=== PATIENT | male | born 1970 | race Caucasian/White ===

== ENCOUNTER 2021-07-04 10:06 | Observation (INO) ==
--- NOTE | 2021-06-30 10:56 | Anesthesiology Consultation ---
Date of Service June 30, 2021 Assessment & Plan (1) Encounter for pre-operative examination: - Hypokalemia: Low potassium at 3.0 on preop labs. Will forward labs to PCP and see if any rechecking and/or supplementation being done prior to surgery. Await ing PCP response. - COVID screening: Per assessment on 06/30: Travel screen negative, no known COVID-19 positive contacts or current COVID-19 related symptoms. Patient vaccinated. Surgeon arranging preop COVID testing (scheduled 06/30; CHAPINCITO Saucedo). Awaiting results. - Cardiology office visit (11/25/20): "Nonischemic CMP, LVEF 40-45%.. Normal coronary arteries via cath 09/02/2019[subsequent echo with improved LVEF at 50- 54% 06/2020].. Mildmoderate pulmonary hypertension.. Syncopal episode secondary to cough syncope.. Severe JOAN on CPAP. Pulmonary HTN.. Continue lisinopril.. metoprolol.. furosemide.. potassium."F/U one year recommended. Chart Review Chart Review: Patient NOT seen in Pre Admission Testing History Surgery Operation Date: 07/04/21 14:20 Proposed Procedures p Right Total Knee Arthroplasty - Farzad Polanco MD Height/Weight Height: 6 ft 2 in Weight: 148.778 kg Allergies Allergy/AdvReac Type Severity Reaction Status Date / Time No Known Drug Allergies Allergy Unknown . Verified 06/30/21 10:08 Medications Home Medications Medication Instructions Recorded Confirmed Last Taken adalimumab 40 mg/0.8 mL 40 mg SUBCUT Q14D #2 ml 02/10/20 06/30/21 Unknown subcutaneous syringe kit (Humira) colchicine 0.6 mg tablet 0.6 mg PO .COMPLEX PRN #90 tab 02/10/20 06/30/21 Unknown metoprolol succinate 100 mg 100 mg PO BID #60 tab 02/10/20 06/30/21 Unknown tablet,extended release 24 hr duloxetine 60 mg capsule,delayed 60 mg PO QAM 01/07/21 06/30/21 Unknown release sprinkle allopurinol 300 mg tablet 300 mg PO QAM 04/20/21 06/30/21 Unknown atorvastatin 10 mg tablet (Lipitor) 10 mg PO QAM 04/20/21 06/30/21 Unknown potassium chloride 10 mEq 30 meq PO BID 04/20/21 06/30/21 Unknown capsule,extended release cholecalciferol (vitamin D3) 25 25 mcg PO DAILY 06/30/21 06/30/21 Unknown mcg (1,000 unit) chewable tablet (Vitamin D3) furosemide 40 mg tablet (Lasix) 40 mg PO QAM 06/30/21 06/30/21 Unknown lisinopril 2.5 mg tablet 2.5 mg PO BID 06/30/21 06/30/21 Unknown magnesium 250 mg tablet 250 mg PO DAILY 06/30/21 06/30/21 Unknown milk thistle 500 mg capsule 500 mg PO QAM 06/30/21 06/30/21 Unknown zinc 100 mg tablet 100 mg PO DAILY 06/30/21 06/30/21 Unknown Past Medical History Medical History Chronic systolic CHF (congestive heart failure) follows with [facility] cardio Hx of gout Hyperlipidemia Hypertension Morbid obesity Psoriasis Pulmonary hypertension Pulmonary HTN mild to moderate (mPAP 40) with elevated left sided pressures (PCWP 28) per 08/2019 cardiac cath Rheumatoid arthritis Diffuse joints, on Humira (no cervical ROM limitations) Sleep apnea CPAP (compliant) Past Family History Family History Mother Family history of diabetes mellitus Other No family history of adverse response to anesthesia Past Surgical History Surgical History H/O elbow surgery R/L History of appendectomy History of cardiac cath 08/2019 > The coronary arteries are angiographically normal. LV diastolic pressure very high. Pulmonary HTN mild to moderate (mPAP 40) with elevated left sided pressures (PCWP 28). History of carpal tunnel release R/L History of colonoscopy History of tooth extraction Social History Smoking Status: Current every day smoker tobacco type: cigarettes Smoking cigarettes per day: 1/2 ppd Do You Dip or Chew Tobacco: No Hx Alcohol Use: Yes Alcohol type: beer alcohol intake frequency: 3 or more drinks per day Hx Substance Use: No substance use type: does not use Lab Results Anesthesia Preop Results Results Anesthesia Widget: WBC 8.31 K/uL (4.8-10.8) 06/08/21 Hgb 14.9 g/dL (14.0-18.0) 06/08/21 Hct 42.3 % (42-52) 06/08/21 Plt 134 K/uL (130-400) 06/08/21 Na 134 mmol/L (136-145) L 06/08/21 K 3.0 mmol/L (3.5-5.1) L 06/08/21 Cl 99 mmol/L (98-107) 06/08/21 CO2 23 mmol/L (21-32) 06/08/21 BUN 11 mg/dl (6-23) 06/08/21 Creat 0.74 mg/dl (0.6-1.4) 06/08/21 Glucose Level 113 mg/dl (70-99(Fasting)) H 06/08/21 PT 10.4 Seconds (9.0-12.0) 06/08/21 INR 1.0 (0.9-1.1) 06/08/21 Blood Type A Positive 06/08/21 Antibody Screen NEGATIVE 06/08/21 Testing Electrocardiogram Date: 01/07/21 NSR at 82bpm. NS TWA. Chest X-Ray Date: 01/07/21 Findings: + NAD Echocardiogram Date: 06/30/20 LVEF 50-54%. No clear cut RWMA. Grade I-II DD. Mild biatrial. Mild NICO. No significant valvular disease. Stress Test Date: 08/15/19 Type:DSE LVEF 40-44%. DSE echo is negative for inducible ischemia. No significant arrhythmia noted. Mild biatrial enlargement. Mild LVE. Mild MR. 92% MPHR. Cardiac Catheterization Date: 09/02/19 The coronary arteries are angiographically normal. LV diastolic pressure very high. Pulmonary HTN mild to moderate (mPAP 40) with elevated left sided pressures (PCWP 28). Recommend diuretic therapy for diastolic HF with elevated LVEDP. Return to referring command and control specialist for further management.
--- NOTE | 2021-07-02 09:48 | History and Physical Report ---
DATE OF ADMISSION: 07/04/2021 CHIEF COMPLAINT: Persistent and progressive right knee pain. HISTORY OF PRESENT ILLNESS: The patient is a 50-year-old gentleman who presents for surgical treatme nt of his right knee. He has got a long history of right knee pain and discomfort, it has gradually gotten worse over time. We have been treating for the past year and a half. He has gone through a p eriod of weight loss and lost about 50 pounds. Despite this, he continues to be limited by right kne e pain. He is having difficulty doing his job, which requires a lot of standing. By the end of the day, he limps quite a bit and pretty miserable. He has had injections, which have become less succes sful over time. He has got a diagnosis of underlying rheumatoid disease and is managed by Dr. Alexander for this. He has been scheduled for knee replacement in the past, but canceled due to the COVID epid emic. He would like to have his knee fixed. PAST MEDICAL HISTORY: Significant for: 1. Hypertension. 2. Elevated cholesterol. 3. Sleep apnea. 4. Obesity. 5. A 28-furu-kbnt history of smoking. 6. Underlying rheumatoid disease. PAST SURGICAL HISTORY: None. ALLERGIES: None. CURRENT MEDICATIONS: Include: 1. Humira every 14 days. 2. Albuterol. 3. Allopurinol. 4. Lipitor. 5. Bupropion. 6. Colchicine. 7. Fluticasone inhaler. 8. Furosemide. 9. Indomethacin. 10. Lisinopril. 11. Metoprolol. 12. Potassium chloride. SOCIAL HISTORY: A 50-year-old male. He is reasonably healthy. He smokes half a pack of cigarettes a day. Three drinks per week. FAMILY HISTORY: Noncontributory. REVIEW OF SYSTEMS: Significant for this rheumatoid diagnosis. He is on Humira. Denies any diabetes . No chest pain or shortness of breath. He is obese with a BMI of 42. He does have sleep apnea. PHYSICAL EXAMINATION: GENERAL: Shows a pleasant middle-aged male. Looks to be in reasonably good health. HEENT: Benign. NECK: Supple. No lymphadenopathy. LUNGS: Clear to auscultation. HEART: Has a regular rate and rhythm. ABDOMEN: Soft, nontender, nondistended. EXTREMITIES: Grossly neurovascularly intact except as follows: Examination of the right knee reveal ed patient ambulates with a bit of a limp. He has got varus alignment to his knee. Small knee effus ion. He is tender diffusely around his knee. Range of motion about 5-125. There is no instability. Negative straight leg raise. Some fairly mild stasis changes distally. No open wounds. X-RAYS: X-rays of the right knee from previously reviewed. It shows advanced right knee DJD. He montoya s got complete loss of his medial joint space. This has progressed over the past year. X-rays of th e hip reveals some very mild hip arthritis. ASSESSMENT: A 50-year-old male with underlying rheumatoid disease, morbid obesity, hypertension, heather vated cholesterol, sleep apnea with advanced right knee degenerative joint disease. He has failed co nservative measures. He has been scheduled for surgery in the past, but canceled due to the COVID is sues, but would now like to have his knee fixed. PLAN: We will take him to the operating room and do a right total knee replacement. The risks and b enefits of this procedure were explained to the patient and include but not limited to DVT, PE, , infection, neurological injury, vascular injury, bleeding problem, pain, limited range of motion, s tiffness, failure to relieve his symptoms, incomplete relief of symptoms, need for further surgery in the future, fracture, leg length inequality, nerve palsy, and need for revision surgery. He is awar e that at his young age, this may need to be revised at some point in the future. We did talk about holding his lisinopril in the morning of surgery and taking his propranolol. We ma irineo put some antibiotics in the cement due to his autoimmune disorder. He is planning on being dischar ged to home. He is not planning on home health. On his preoperative workup, his potassium was low. We did call and make sure he is taking his potas sium supplement and this would likely be rechecked in the morning of OR. Job ID: [id number]
[~2021-07-04 10:06] MED LIST: ACETAMINOPHEN 500 MG TAB PO SCH; BUPIVACAINE 0.25% 30 ML VIAL ONE; BUPIVACAINE 0.5 % 5 MG/1 ML PF 10ML VIAL ONE; BUPIVACAINE LIPOSOME/PF 266 MG, BUPIVACAINE/EPINEPHRINE 50 ML, SODIUM CHLORIDE 0.9% 30 ... INFIL SCH; FAMOTIDINE 20 MG TAB PO SCH; GABAPENTIN 900 MG DOSE PO SCH; LR 500ML BOLUS, THEN 15ML/HR IV SCH; LR 60ML/HR IV SCH; MEPIVACAINE HCL 2% 20 ML VIAL ONE; TRANEXAMIC ACID 1,000 MG **IV Intra-op IV SCH
--- NOTE | 2021-07-04 11:12 | History & Physical Bridge Note ---
Date of Service July 04, 2021 History & Physical Bridge Note I have examined the patient, reviewed the History & Physical and in the interval since the performance of the History & Physical I have noted the following changes of clinical significance: no changes noted
[2021-07-04] MEDS ORDERED: ALBUT/IPRATROP 3MG/0.5MG NEB 3 ML VIAL ONE (12:23)
[2021-07-04] MEDS ORDERED: LIDOCAINE 2% 2 ML VIAL/AMP(20MG/ML) INFIL ONE (12:26)
[2021-07-04] MEDS ORDERED: PROPOFOL IV EMULSION 10 MG/ML 20 ML VIAL IV ONE (12:26)
[2021-07-04] MEDS ORDERED: MIDAZOLAM HCL 1 MG/ML 2ML VIAL ONE (12:26)
[2021-07-04] MEDS ORDERED: ONDANSETRON INJ 2 MG/ML 2 ML VIAL ONE (12:26)
[2021-07-04] MEDS ORDERED: fentaNYL citrate 100 MCG/2 ML VIAL ONE ×2 (12:26→13:22)
[2021-07-04] MEDS ORDERED: ALBUT/IPRATROP 3MG/0.5MG NEB 3 ML VIAL NEB STA (12:33)
[2021-07-04] MEDS ORDERED: ATROPINE SULFATE 0.1 MG/ML 10ML SYR IV PRN (12:34)
[2021-07-04] MEDS ORDERED: ALBUT/IPRATROP 3MG/0.5MG NEB 3 ML VIAL INH PRN (12:34)
[2021-07-04] MEDS ORDERED: ONDANSETRON INJ 2 MG/ML 2 ML VIAL IV PRN ×2 (12:34→16:56)
[2021-07-04] MEDS ORDERED: ePHEDrine sulfate 50 MG/ML AMP IV PRN (12:34)
[2021-07-04] MEDS ORDERED: SODIUM CHLORIDE 0.9% PF 50 ML VIAL ONE (12:50)
[2021-07-04] MEDS ORDERED: BUPIVACAINE LIPOSOME 1.3% 266 MG/20 ML VIAL ONE (12:50)
[2021-07-04] MEDS ORDERED: BUPIVACAINE/EPINEPHRINE 0.25% 1:200,000 30 ML VIAL ONE (12:50)
[2021-07-04] MEDS ORDERED: SUGAMMADEX SODIUM 200 MG/2 ML VIAL IV ONE (12:56)
[2021-07-04] MEDS ORDERED: VANCOMYCIN HCL 1000MG/20ML VIAL ONE (13:35)
[2021-07-04] MEDS ORDERED: KETAMINE 50 MG/5 ML SYRINGE ONE (13:36)
[2021-07-04] MEDS ORDERED: HYDROmorphone INJ 2 MG/ML SYR/VIAL ONE (13:42)
[2021-07-04] MEDS ORDERED: SUCCINYLCHOLINE CHLORIDE 20 MG/ML 10 ML VIAL IV ONE (13:49)
[2021-07-04] MEDS ORDERED: ROCURONIUM BROMIDE 10 MG/ML 5 ML VIAL IV ONE (14:02)
[2021-07-04] MEDS ORDERED: LARYING-O-JET KIT (LTA) ONE (14:04)
[2021-07-04] MEDS: fentaNYL citrate 100 MCG/2 ML VIAL IV PRN ×2 (15:18→15:23)
--- NOTE | 2021-07-04 15:22 | Operative Report ---
PG Post Operative Report Pre & Post Diagnosis Operation Date: 07/04/21 12:30 Pre-Op Diagnosis: Osteoarthritis Knee Right Post-Op Diagnosis: Osteoarthritis Knee Right I identified the patient and participated in the time-out.: Yes Procedure Operation Date: 07/04/21 12:30 Actual Procedures p Right Total Knee Arthroplasty(Right) - Farzad Polanco MD Surgeon Farzad Polanco MD Medical Imaging Technologist Juan Hensley PA-C Estimated Blood Loss 100 Findings Consistent with Post-Op Diagnosis Operative findings revealed advanced right medial and patellofemoral compartment arthritis. He had full thickness cartilage loss of the medial side of his knee with an area suggestive of avascular necrosis. Small knee joint effusion. Fluids 1100 cc Specimens Right knee sent for pathology Anesthesia Type General Regional Complications none Disposition Accompanied Patient To Recovery: No Indications Patient is a 50-year-old gentleman has had a fairly long history of gradual progressive increasing right knee pain discomfort. We have treated him extensively over time with conservative management which became less successful over time. He has seen weight loss physician and had actually undergone a 50 pound weight loss and continue to be limited by his knee pain. He failed conservative measures and elected proceed with total knee arthroplasty. Description of Procedure Operative implants consist of: 1 Biomet Vanguard size 70 right posterior stabilized femoral component. 2. Biomet size 75 tibial tray. 3. 10 mm posterior stabilized polyethylene insert. 4. 31 x 8 all polypatella. The patient was taken the operating, identified, and placed on the operating table supine position protectors were properly padded. IV antibiotics tried by anesthesia team. A abductor canal block had provided in the holding area. General anesthetic was implemented. A right thigh turn was then placed. The right lower extremities then prepped and draped in usual sterile fashion. The right leg was elevated exsanguinated with use of an Esmarch in terms playset 300 mmHg. An anterior approach to the right knee was then performed to long itudinal incision centered over the patella. Sharp dissection carried through subcutaneous tissue down the extensor mechanism. A medial parapatellar arthrotomy incision was made. Some subperiosteal dissection was carried out medially. The fat pad was resected from each patella tendon. Lateral patellofemoral ligament was released. Patella subluxated laterally and the knee was flexed. The osteophytes taken off distal femur. The ACL and PCL were then released from the distal femur and the tibia subluxated anteriorly. The external tibial alignment jig was then placed in the interface the tibia and adjusted 14 mm medially. Proximal tibial cut was made remove about 3 mm of bone from the medial side. Tibia sized to a size 75. Attention below the femur. The distal femur was entered with a sharp drill. Intramedullary canal was suction. A right 6 degree valgus cutting guide was placed. Distal femoral cutting block was pinned in place. Distal femoral cut was made to take an addit ional 3 mm of bone off distal femur. The femur was then sized to a size 70. The AP cutting block was pinned parallel to the epicondylar axis which was 4 degrees of external rotation. The anterior cut, anterior chamfer, posterior cut, posterior chamfer cuts were made. The box cutting guide was placed in the just slight lateral box cut was made. The knee was flexed. The remnants of the medial and lateral menisci were excised. The osteophyte taken off the posterior aspect of the femur. Trial femoral component was placed. Tibial tray was pinned in maximum external rotation and the drill and stem punch were used. Defect in proximal tibia for the tibial tray. Knee was then trialed and the 10 mm insert fit most appropriately. Attention drawn the patella. The patella was cleaned of all soft tissues. Patella thickness measured 24 mm in thickness was cut down to 15. Was sized to a size 31 patella. The lug holes were drilled for the 31 patella. The lateral osteophyte is moved. Patella button was placed. Knee was taken through range of motion patella tracked nicely with no thumbs test. Attention drawn to place the permanent components. All trial components were removed. Bone plug was placed in the distal femur limit blood loss put a double batch Pal[place] G cement was mixed. I did add an additional gram of vancomycin due to his immunocompromise state and being on Humira. Also is a morbidly obese. A Biomet size 70 right posterior stabilized femoral component, size 75 tibial tray, 10 mm posterior stabilized polyethylene insert, and a 31 x 8 all polypatella then cemented in place. Knee was brought out into full extension until cement hardened. Final cement check was then performed. Pericapsular tissues were injected with total 100 cc of combination of 20 cc of Exparel, 30 cc normal saline, 50 cc of quarter percent Marcaine with epinephrine. Patient did receive 1 g tranexamic acid. The tourniquet was then let down for final tourniquet time 59 minutes. Hemostasis assured use electrocautery. The extensor mechanism closed with combination 1 PDS suture #1 Vicryl suture in [id number] fashion. Extensor mechanism checked and found to be intact. Subcutaneous tissue then closed with 2 Dexon suture in buried fashion skin was closed skin cintia. Leg was then cleaned and dried a sterile dressing was Xeroform, 4 x 4's, sterile cast padding, Mamadou bandage were applied. Patient transferred to the recovery room in stable condition. Patient tolerated procedure well and there were no complications. Juan Hensley, my physician reproductive healthcare assistant, was present for the entire procedure. His assistance was essential and required for appropriate patient positioning, prepping and draping, surgical exposure, performing the technical details of the operation, placement the implants, closure of the wound, and placement of the sterile bandage. I attest to the content of the Intraoperative Record and any orders documented therein. Any exceptions are noted below.
[2021-07-04] MEDS: HYDROmorphone INJ 1 MG/ML SYRINGE IV PRN ×3 (15:28→15:38)
[2021-07-04] MEDS ORDERED: fentaNYL citrate 100 MCG/2 ML VIAL IV PRN (15:36)
[2021-07-04] MEDS: HYDROmorphone INJ 0.5 MG/0.5 ML SYR IV PRN ×2 (15:43→15:48)
--- NOTE | 2021-07-04 16:04 | XRay Report ---
XR knee RT 1 or 2V routine HISTORY: 50 years-old Male Surgical Post Op right knee total joint arthroplasty COMPARISON: Knee radiographs 12/27/2020 TECHNIQUE: 2 views the right knee FINDINGS: Right knee total joint arthroplasty and patella resurfacing. Anterior midline skin cintia are noted along with expected postoperative soft tissue swelling with deep tissue air. No acute fracture or une xpected opaque foreign body. IMPRESSION: Right knee total joint arthroplasty and patella resurfacing with expected postoperative c hanges. ACT 112: Negative or not required by law. The above report was generated using voice recognition software. It may contain grammatical, syntax o r spelling errors. Electronically signed by: Delbert Lindsey M.D. 07/04/2021 4:03 PM
[2021-07-04] MEDS ORDERED: MEPERIDINE HCL 50 MG/ML CARP ONE (16:14)
[2021-07-04] MEDS: MEPERIDINE HCL 25 MG/ML CARP/VIAL IV PRN ×2 (16:17→16:24)
--- NOTE | 2021-07-04 16:40 | Anesthesiology Progress Note ---
Date of Service July 04, 2021 Anesthesia Post Procedure Vital Signs Vital Signs: Temp Pulse Pulse Resp BP Pulse Ox 07/04/21 16:35 74 17 127/91 96 07/04/21 16:25 81 19 154/98 H 92 07/04/21 16:15 82 12 159/87 H 94 07/04/21 16:05 85 20 131/91 93 07/04/21 15:55 36.5 C 85 16 159/96 H 97 07/04/21 15:45 85 14 140/92 97 07/04/21 15:35 87 17 153/99 H 94 07/04/21 15:25 84 21 162/93 H 96 07/04/21 15:15 36.2 C L 85 16 134/91 96 07/04/21 12:37 91 H 18 95 07/04/21 10:57 36.8 C 38 L 18 150/98 H 96 Pain Intensity Right Knee: Pain Intensity: 8 Transfer of Care Handoff Completed per policy Notes Mental Status: alert / awake / arousable and participated in evaluation Patient Amnestic to Procedure: Yes Nausea / Vomiting: adequately controlled Pain: adequately controlled Airway Patency, RR, SpO2: stable & adequate BP & HR: stable & adequate Hydration State: stable & adequate Anesthetic Complications: no major complications apparent and Pt Satisfied with anesthetic care
[2021-07-04] MEDS ORDERED: MAGNESIUM HYDROXIDE SUSP 30 ML UDC PO PRN (16:56)
[2021-07-04] MEDS ORDERED: COLCHICINE 0.6 MG TAB PO PRN (16:56)
[2021-07-04] MEDS ORDERED: diphenhydrAMINE Capsule 25 MG CAP PO PRN (16:56)
[2021-07-04] MEDS ORDERED: METOCLOPRAMIDE HCL INJ 5 MG/ML 2 ML VIAL IV PRN (16:56)
[2021-07-04] MEDS ORDERED: oxyCODONE HCL IR 5 MG TAB (IMMEDIATE RELEASE) PO PRN (16:56)
[2021-07-04] MEDS ORDERED: NALOXONE HCL 0.4 MG/1 ML VIAL/CARP IV PRN (16:56)
[2021-07-04] MEDS ORDERED: HYDROmorphone INJ 0.5 MG/0.5 ML SYR IV PRN (16:56)
[2021-07-04] MEDS ORDERED: bisacodyL 10 MG SUPP PR PRN (16:56)
[2021-07-04] MEDS ORDERED: ALUMINUM/MAGNESIUM SUSP 30 ML UDC PO PRN (16:56)
[2021-07-04] MEDS ORDERED: ONDANSETRON 4 MG OD TAB PO PRN (17:34)
[2021-07-04] MEDS: KETOROLAC 30 MG/ML VIAL IV SCH ×2 (17:39→21:50)
[2021-07-04] MEDS: SODIUM CHLORIDE 0.9% 1000ML 1,000 ML IV SCH (17:42)
[2021-07-04] MEDS: HYDROmorphone HCL 2 MG TAB PO PRN (18:55)
[2021-07-04] MEDS: ASCORBIC ACID 500 MG TAB PO SCH (20:26)
[2021-07-04] MEDS: ACETAMINOPHEN 500 MG TAB PO SCH (20:29)
[2021-07-04] MEDS: ASPIRIN 81 MG ECTAB PO SCH (20:30)
[2021-07-04] MEDS: DOCUSATE SODIUM 100 MG CAP PO SCH (20:30)
[2021-07-04] MEDS: lisinopril 2.5 MG TAB PO SCH (20:31)
[2021-07-04] MEDS: METOPROLOL SUCC 50MG EXT REL TAB PO SCH (20:31)
[2021-07-04] MEDS: POTASSIUM CHLORIDE 10 MEQ TABCR PO SCH (20:32)
[2021-07-04] MEDS: TAPENTADOL HCL ER 50 MG TABCR PO SCH (20:45)
[2021-07-04] MEDS: ceFAZolin 3,000 MG in DEXTROSE 5% 50 ML IV SCH (20:45)
[2021-07-04] MEDS ORDERED: SENNA 8.6 MG TAB PO SCH (21:00)
[2021-07-04] MEDS ORDERED: TRANEXAMIC ACID / 0.7% NACL 1,000 MG/100 ML BAG IV SCH (21:15)
[2021-07-04] MEDS ORDERED: ceFAZolin 2000MG 2,000 MG/15 ML SYR IV SCH (21:15)
[2021-07-04] MEDS ORDERED: ACETAMINOPHEN 500 MG TAB PO SCH (22:00)
[2021-07-05] MEDS: HYDROmorphone HCL 2 MG TAB PO PRN ×3 (01:04→11:24)
[2021-07-05] MEDS: SODIUM CHLORIDE 0.9% 1000ML 1,000 ML IV SCH (01:05)
[2021-07-05] MEDS: KETOROLAC 30 MG/ML VIAL IV SCH ×2 (05:53→10:05)
[2021-07-05] MEDS: ceFAZolin 3,000 MG in DEXTROSE 5% 50 ML IV SCH (05:53)
[2021-07-05 06:53] LABS: Hematocrit (blood only) 33.3 % (42-52); Hemoglobin 11.6 g/dL (14.0-18.0); Mean Corpuscular Hemoglobin 33.9 pg (25-34); Mean Corpuscular Hgb Conc 34.8 g/dL (32-36); Mean Corpuscular Volume 97.4 fL (80-100); Mean Platelet Volume 8.8 fL (7.4-10.4); Platelet Count 108 K/uL (130-400); RDW Coefficient of Variation 13.4 % (11.5-14.5); RDW Standard Deviation 47.1 fL (36.4-46.3); Red Blood Count 3.42 M/uL (4.7-6.1); White Blood Count 7.38 K/uL (4.8-10.8)
[2021-07-05 07:16] LABS: BUN Creatinine Ratio 12.9 (10-20); Calcium 8.3 mg/dl (8.5-10.1); Creatinine Clr Calc Pharmacy 158.8 ml/min; Est GFR (African American) 117.8 ml/min; Est GFR (Non-African American) 101.6 ml/min; Potassium 4.3 mmol/L (3.5-5.1)
[2021-07-05] MEDS ORDERED: dexAMETHasone 10 MG in SYRINGE 0 ML IV SCH (08:00)
[2021-07-05] MEDS: POTASSIUM CHLORIDE 10 MEQ TABCR PO SCH (08:28)
[2021-07-05] MEDS: METOPROLOL SUCC 50MG EXT REL TAB PO SCH (08:29)
[2021-07-05] MEDS: lisinopril 2.5 MG TAB PO SCH (08:29)
[2021-07-05] MEDS: DOCUSATE SODIUM 100 MG CAP PO SCH (08:29)
[2021-07-05] MEDS: ASPIRIN 81 MG ECTAB PO SCH (08:29)
[2021-07-05] MEDS: ACETAMINOPHEN 500 MG TAB PO SCH ×2 (08:30→14:48)
[2021-07-05] MEDS: ASCORBIC ACID 500 MG TAB PO SCH (08:30)
[2021-07-05] MEDS: TAPENTADOL HCL ER 50 MG TABCR PO SCH (08:34)
[2021-07-05] MEDS ORDERED: DULoxetine HCL 60 MG CAP PO SCH (09:00)
[2021-07-05] MEDS ORDERED: CHOLECALCIFEROL 1,000 UNITS 25 MCG TAB PO SCH (09:00)
[2021-07-05] MEDS ORDERED: TAMSULOSIN HCL 0.4 MG CAP PO SCH (09:00)
[2021-07-05] MEDS ORDERED: allopurinoL 300 MG TAB PO SCH (09:00)
[2021-07-05] MEDS ORDERED: FUROSEMIDE 40 MG TAB PO SCH (09:00)
[2021-07-05] MEDS ORDERED: ZINC SULFATE 220 MG CAPSULE PO SCH (09:00)
[2021-07-05] MEDS ORDERED: ATORVASTATIN 10 MG TAB PO SCH (09:00)
[2021-07-05] MEDS ORDERED: MAGNESIUM OXIDE 400 MG TAB PO SCH (09:00)
[2021-07-05] MEDS ORDERED: DOCUSATE SODIUM/SENNA 50/8.6MG TAB PO SCH (09:00)
[2021-07-05] MEDS ORDERED: NON-FORMULARY MEDICATION (Milk Thistle 500 mg Capsule) PO SCH (09:00)
[2021-07-05] MEDS ORDERED: MULTIVITAMIN TAB PO SCH (09:00)
--- NOTE | 2021-07-05 14:55 | Progress Notes ---
DATE OF SERVICE: 07/05/2021. SUBJECTIVE: A 50-year-old gentleman postoperative day 1 from a right knee replacement. He is doing okay. Had a little bit of difficulty with pain control initially, but seems to be doing better now. No chest pain or shortness of breath. Not feeling dizzy or lightheaded. OBJECTIVE: VITAL SIGNS: Temperature 37.0. Vital signs are stable. PHYSICAL EXAMINATION: GENERAL: Shows a pleasant middle-aged male. He is sitting up in his bedside chair and looks pretty comfortable this afternoon. LUNGS: Clear to auscultation. HEART: Regular rate and rhythm. ABDOMEN: Soft, nontender, nondistended. EXTREMITIES: Grossly neurovascularly intact except as follows: Examination of the right leg reveals the dressing to be in place. There is just a little bit of bloody drainage through it. He can do a straight leg raise with some effort. He can dorsiflex and plantarflex his foot appropriately. He i s neurologically intact. LABORATORY DATA: Hemoglobin 11.6. Hematocrit 33.3. Electrolytes are stable. ASSESSMENT: A 50-year-old gentleman postoperative day 1 from right knee replacement, doing reasonabl y well. Had a little bit of difficulty with pain control initially, but doing better now. PLAN: 1. DVT prophylaxis includes thigh-high TEDs, SCDs, and aspirin twice a day. 2. PT, OT, weightbear as tolerated. Right total knee protocol. 3. Pain control, doing okay with current pain regimen. 4. Disposition: We will see how he does in therapy today. If he passes therapy, he is going to go home and he is going to do outpatient therapy at [facility]. Job ID: [id number]
== END 2021-07-05 15:40 | disposition home health service (06) ==
LOC: ASU 10:06 → 3E 10:06
DX: Z79.82 Long term (current) use of aspirin; I10 Essential (primary) hypertension; E78.00 Pure hypercholesterolemia, unspecified; E66.9 Obesity, unspecified; M17.11 Unilateral primary osteoarthritis, right knee; Z79.899 Other long term (current) drug therapy; G47.30 Sleep apnea, unspecified

== ENCOUNTER 2023-09-14 08:59 | Observation (INO) ==
--- NOTE | 2023-08-21 12:28 | PAT Medication Instructions ---
Medication Instructions Date of Service August 21, 2023 Home Medications Medication Instructions Recorded colchicine 0.6 mg tablet 0.6 mg PO .COMPLEX PRN gout #90 02/10/20 tabs metoprolol succinate 100 mg 100 mg PO BID #60 tabs 02/10/20 tablet,extended release 24 hr Danny Carmona #1 ea 07/18/21 colchicine 0.6 mg tablet 0.6 mg PO .COMPLEX PRN metoprolol succinate 100 mg tablet,extended release 24 hr 100 mg PO BID duloxetine 60 mg capsule,delayed release sprinkle 60 mg PO QAM allopurinol 300 mg tablet 300 mg PO QAM atorvastatin 10 mg tablet (Lipitor) 10 mg PO QAM potassium chloride 10 mEq capsule,extended release 30 meq PO BID furosemide 40 mg tablet (Lasix) 40 mg PO QAM lisinopril 2.5 mg tablet 2.5 mg PO BID albuterol sulfate 90 mcg/actuation aerosol inhaler 1 - 2 puff inhalation QID PRN budesonide 160 mcg-glycopyr 9 mcg-formot 4.8 mcg/actuation HFA inhaler (Breztri Aerosphere) 2 inh inhalation BID bupropion HCl 300 mg 24 hr tablet, extended release (Wellbutrin XL) 300 mg PO QAM fenofibrate nanocrystallized 48 mg tablet 48 mg PO QAM ixekizumab 80 mg/mL subcutaneous syringe (Taltz Syringe) 80 mg subcut MONTHLY losartan 50 mg tablet 50 mg PO QAM quetiapine 25 mg tablet (Seroquel) 25 mg PO DAILY PRN quetiapine 50 mg tablet (Seroquel) 50 mg PO HS roflumilast 500 mcg tablet 500 mcg PO QAM Continue as directed quetiapine 25 mg tablet (Seroquel) 25 mg PO DAILY PRN(if needed) ASK your surgeon for instructions colchicine 0.6 mg tablet 0.6 mg PO .COMPLEX PRN ASK your prescriber and surgeon ixekizumab 80 mg/mL subcutaneous syringe (Taltz Syringe) 80 mg subcut MONTHLY roflumilast 500 mcg tablet 500 mcg PO QAM STOP taking 48 hours before surgery fenofibrate nanocrystallized 48 mg tablet 48 mg PO QAM DO NOT take the morning of surgery potassium chloride 10 mEq capsule,extended release 30 meq PO BID furosemide 40 mg tablet (Lasix) 40 mg PO QAM lisinopril 2.5 mg tablet 2.5 mg PO BID losartan 50 mg tablet 50 mg PO QAM Take morning of surgery With a small sip of water, OTHERWISE NOTHING TO EAT OR DRINK AFTER MIDNIGHT: metoprolol succinate 100 mg tablet,extended release 24 hr 100 mg PO BID duloxetine 60 mg capsule,delayed release sprinkle 60 mg PO QAM allopurinol 300 mg tablet 300 mg PO QAM atorvastatin 10 mg tablet (Lipitor) 10 mg PO QAM albuterol sulfate 90 mcg/actuation aerosol inhaler 1 - 2 puff inhalation QID PRN (use if needed; please bring with you to hospital day of surgery if possible) budesonide 160 mcg-glycopyr 9 mcg-formot 4.8 mcg/actuation HFA inhaler (Breztri Aerosphere) 2 inh inhalation BID bupropion HCl 300 mg 24 hr tablet, extended release (Wellbutrin XL) 300 mg PO QAM Take evening before surgery metoprolol succinate 100 mg tablet,extended release 24 hr 100 mg PO BID potassium chloride 10 mEq capsule,extended release 30 meq PO BID lisinopril 2.5 mg tablet 2.5 mg PO BID albuterol sulfate 90 mcg/actuation aerosol inhaler 1 - 2 puff inhalation QID PRN (if needed) budesonide 160 mcg-glycopyr 9 mcg-formot 4.8 mcg/actuation HFA inhaler (Breztri Aerosphere) 2 inh inhalation BID quetiapine 50 mg tablet (Seroquel) 50 mg PO HS Other Notes If you have any questions please call us at [phone] or [phone] or [phone] or [phone]
--- NOTE | 2023-08-27 09:28 | Anesthesiology Consultation ---
Date of Service August 27, 2023 Assessment & Plan (1) Encounter for pre-operative examination: Chart Review Chart Review: Acceptable Risk for Surgery and Patient seen in Pre Admission Testing - Patient is NOT an ideal OPJ candidate (currently 23 hour obs) Per PAT appt on 08/27/23, no recent illness/disease exposures, illness related symptoms, or recent illness/disease positive tests. Will leave to surgeon's discretion if preop Covid testing needed Patient last seen by cardiology 07/24/2023 = Patient presents for follow-up. Feels well today. Working on losing weight. Will be seeing orthopedics 08/20/2023 for consideration of knee replacement. Started new inhaler with pulmonology which has helped his breathing. Chronic diastolic heart failureweight down. Appears euvolemic on exam today but is limited by body habitus. Continue Lasix 80 mg daily. Morbid obesitydiscussed diet and exercise. Dyslipidemiawell-controlled. Tobacco use disorderworking towards cessation. Follow-up in 1 year. Teaching & Discussion Pre-Anesthesia Teaching/Discussion Notes: Instructed NPO after midnight before surgery,except medications with 15 cc of water. Medication instructions provided according to the [facility] guidelines. History Surgery Operation Date: 09/14/23 12:30 Proposed Procedures p Left Total Knee Arthroplasty - Farzad Polanco MD Height/Weight Height: 6 ft 1 in Weight: 167.9 kg Allergies Allergy/AdvReac Type Severity Reaction Status Date / Time No Known Drug Allergies Allergy Unknown . Verified 08/20/23 11:40 Medications Home Medications Medication Instructions Recorded Confirmed Last Taken colchicine 0.6 mg tablet 0.6 mg PO .COMPLEX PRN gout #90 02/10/20 08/20/23 07/03/21 07:00 tabs metoprolol succinate 100 mg 100 mg PO BID #60 tabs 02/10/20 08/20/23 07/04/21 08:30 tablet,extended release 24 hr duloxetine 60 mg capsule,delayed 60 mg PO QAM 01/07/21 08/20/23 07/03/21 07:00 release sprinkle allopurinol 300 mg tablet 300 mg PO QAM 04/20/21 08/20/23 07/03/21 07:00 atorvastatin 10 mg tablet (Lipitor) 10 mg PO QAM 04/20/21 08/20/23 07/03/21 07:00 potassium chloride 10 mEq 30 meq PO BID 04/20/21 08/20/23 07/04/21 08:30 capsule,extended release furosemide 40 mg tablet (Lasix) 40 mg PO QAM 06/30/21 08/20/23 07/03/21 07:00 Danny Carmona #1 ea 07/18/21 07/18/21 Unknown albuterol sulfate 90 mcg/actuation 1 - 2 puff inhalation QID PRN sob 08/20/23 08/20/23 Unknown aerosol inhaler budesonide 160 mcg-glycopyr 9 2 inh inhalation BID 08/20/23 08/20/23 Unknown mcg-formot 4.8 mcg/actuation HFA inhaler (Breztri Aerosphere) bupropion HCl 300 mg 24 hr tablet, 300 mg PO QAM 08/20/23 08/20/23 Unknown extended release (Wellbutrin XL) fenofibrate nanocrystallized 48 mg 48 mg PO QAM 08/20/23 08/20/23 Unknown tablet ixekizumab 80 mg/mL subcutaneous 80 mg subcut MONTHLY 08/20/23 08/20/23 Unknown syringe (Taltz Syringe) losartan 50 mg tablet 50 mg PO QAM 08/20/23 08/20/23 Unknown quetiapine 25 mg tablet (Seroquel) 25 mg PO DAILY PRN Anxiety 08/20/23 08/20/23 Unknown quetiapine 50 mg tablet (Seroquel) 50 mg PO HS 08/20/23 08/20/23 Unknown roflumilast 500 mcg tablet 500 mcg PO QAM 08/20/23 08/20/23 Unknown Past Medical History Medical History (Updated 08/27/23 @ 13:49 by Darling Parkinson PA-C) Asthma has not had to "use rescue inhaler in a while" breathing stable and controlled Chronic diastolic heart failure follows with Brady Castanon cardio COPD (chronic obstructive pulmonary disease) Hx of gout Hyperlipidemia Hypertension Morbid obesity Nonischemic cardiomyopathy EF recovered to 58% 04/2023 Psoriasis Pulmonary hypertension - Per 04/2023 ECHO- PASP 35mmHg - Pulmonary HTN mild to moderate (mPAP 40) with elevated left sided pressures (PCWP 28) per 08/2019 cardiac cath Rheumatoid arthritis Diffuse joints (no cervical ROM limitations) Sleep apnea CPAP (compliant) Exercise / Class Metabolic Activity II 4-5 Yardwork/Stairs/Walk up hill (one flight of stairs- no chest pain or SOB ) Past Family History Family History Mother Family history of diabetes mellitus Other No family history of adverse response to anesthesia Past Surgical History Surgical History H/O elbow surgery R/L History of appendectomy History of cardiac cath 08/2019 > The coronary arteries are angiographically normal. LV diastolic pressure very high. Pulmonary HTN mild to moderate (mPAP 40) with elevated left sided pressures (PCWP 28). History of carpal tunnel release R/L History of colonoscopy History of tooth extraction History of total knee replacement right Past Anesthesia History No Hx of Anesthesia Complications and No Family Hx of Anesthesia Complications History of PONV No Hx of PONV and No Hx of Motion Sickness Social History Smoking Status: Current every day smoker tobacco type: cigarettes Smoking cigarettes per day: 1/2 ppd Do You Dip or Chew Tobacco: No Hx Alcohol Use: No (no alcohol since September 12, 2022) Alcohol type: beer ((in the past up to fifth of alcohol a day)) substance use type: does not use Review of Systems - Chronic mild cough- stable - feel due to smoking Patient denies chest pain, shortness of breath, dyspnea on exertion, reflux, wheezing, palpitations. No hx of seizures, stroke, MO. No hx of blood clots or blood transfusions Physical Exam Vital Signs VITALS BP 138/88 P 61 TEMP 98.0 SP02 96% RESP 16 Constitutional no acute distress ENMT Mouth: no TMJ clicking Thyromental Distance: > or= 3.5 Finger Breadths (4.0) Mallampati Class: III Missing molars Neck + short neck and + thick neck; neck extension not limited Respiratory normal respiratory effort; no respiratory distress Auscultation: lungs clear to auscultation bilaterally; no wheezes Cardiovascular Rate/Rhythm: regular rate and regular rhythm Heart Sounds: no murmur Vessels: no carotid bruit Chest (Breasts) Additional Comments: Heart sounds mildly diminished throughout Musculoskeletal Spine: no pain with cervical ROM Extremities: extremities normal to inspection Psychiatric Orientation: alert Lab Results Anesthesia Preop Results Results Anesthesia Widget: WBC 7.50 K/ul (4.8-10.8) 08/27/23 Hgb 13.4 g/dl (14.0-18.0) L 08/27/23 Hct 39.5 % (42.0-52.0) L 08/27/23 Plt 143 K/uL (130-400) 08/27/23 Na 141 mmol/L (136-145) 08/27/23 K 4.0 mmol/L (3.5-5.1) 08/27/23 Cl 107 mmol/L (98-107) 08/27/23 CO2 27 mmol/L (21-32) 08/27/23 BUN 12 mg/dl (6-23) 08/27/23 Creat 0.87 mg/dl (0.6-1.4) 08/27/23 Glucose Level 98 mg/dl (70-99(Fasting)) 08/27/23 PT 10.9 Seconds (9.0-12.0) 08/27/23 PTT 26 Seconds (21-31) 08/27/23 INR 1.0 (0.9-1.1) 08/27/23 Blood Type A Positive 08/27/23 Antibody Screen NEGATIVE 08/27/23 Testing Electrocardiogram Date: 02/04/23 Findings: + NSR @ (63bpm) Nonspecific ST abnormality When compared EKG from June 26 no longer depressed in anterior leads per cardio Echocardiogram Date: 04/20/23 EF: 58% LV Function: normal Other Findings: + LVH (Mild/concentric) Limited views of the valve and heart chambers but able to assess function with Definity. LV endocardium is adequately assessed during the ultrasonic contrast. Mild TR. Stress Test Date: 08/15/19 Type:DSE LVEF 40-44%. DSE echo is negative for inducible ischemia. No significant arrhythmia noted. Mild biatrial enlargement. Mild LVE. Mild MR. 92% MPHR. Cardiac Catheterization Date: 09/02/19 The coronary arteries are angiographically normal. LV diastolic pressure very high. Pulmonary HTN mild to moderate (mPAP 40) with elevated left sided pres sures (PCWP 28). Recommend diuretic therapy for diastolic HF with elevated LVEDP. Return to referring phlebotomy tech for further management. Cervical Spine Date: 08/27/23 FINDINGS: No fractures or subluxations are identified. Vertebral body heights and disc spaces are well maintained. The alignment is anatomic. Prevertebral soft tissues are within normal limits. IMPRESSION: No evidence for acute fracture or subluxation. Other Testing Chest CT scan 02/22/2023 = no pulmonary embolism. Smoking-related lung disease with findings of emphysema and chronic bronchitis. Bibasilar atelectasis. Right middle lobe pulmonary noduleno significant change dating back to 2019. Benign etiology.
[~2023-09-14 08:59] MED LIST changes: -ACETAMINOPHEN 500 MG TAB PO SCH; -BUPIVACAINE 0.25% 30 ML VIAL ONE; -BUPIVACAINE LIPOSOME/PF 266 MG, BUPIVACAINE/EPINEPHRINE 50 ML, SODIUM CHLORIDE 0.9% 30 ... INFIL SCH; -FAMOTIDINE 20 MG TAB PO SCH; -GABAPENTIN 900 MG DOSE PO SCH; -LR 500ML BOLUS, THEN 15ML/HR IV SCH; -LR 60ML/HR IV SCH; -MEPIVACAINE HCL 2% 20 ML VIAL ONE; +ROPIVACAINE 0.5% 5 MG/ML 30 ML VIAL ONE; -TRANEXAMIC ACID 1,000 MG **IV Intra-op IV SCH
[2023-09-14] MEDS: LR 500ML BOLUS, THEN 15ML/HR IV SCH (10:03)
[2023-09-14] MEDS: FAMOTIDINE 20 MG TAB PO SCH (10:03)
[2023-09-14] MEDS: METOCLOPRAMIDE HCL 10 MG TABLET PO SCH (10:03)
[2023-09-14] MEDS: ACETAMINOPHEN 500 MG TAB PO SCH ×2 (10:03→14:59)
[2023-09-14] MEDS: CeleBREX 200 MG CAP PO SCH (10:03)
[2023-09-14] MEDS: Scopolamine 1 MG TDSY TD SCH (10:04)
[2023-09-14] MEDS: dexAMETHasone**PF** 10 MG/ML VIAL IV SCH (10:04)
[2023-09-14] MEDS: ALBUT/IPRATROP 3MG/0.5MG NEB 3 ML VIAL NEB STA (10:05)
[2023-09-14] MEDS: LR 60ML/HR IV SCH (10:17)
[2023-09-14] MEDS ORDERED: MIDAZOLAM HCL 1 MG/ML 2ML VIAL ONE (10:20)
[2023-09-14] MEDS ORDERED: PROPOFOL IV EMULSION 10 MG/ML 20 ML VIAL IV ONE ×2 (10:20→10:21)
[2023-09-14] MEDS ORDERED: fentaNYL citrate PF 100 MCG/2 ML VIAL ONE (10:20)
[2023-09-14] MEDS ORDERED: ATROPINE SULFATE 0.1 MG/ML 10ML SYR IV PRN (10:35)
[2023-09-14] MEDS ORDERED: fentaNYL citrate PF 100 MCG/2 ML VIAL IV PRN (10:35)
[2023-09-14] MEDS ORDERED: DROPERIDOL 5 MG/2 ML VIAL IV PRN (10:35)
[2023-09-14] MEDS ORDERED: ePHEDrine sulfate 50 MG/ML AMP IV PRN (10:35)
--- NOTE | 2023-09-14 10:51 | History & Physical Bridge Note ---
Date of Service September 14, 2023 History & Physical Bridge Note I have examined the patient, reviewed the History & Physical and in the interval since the performance of the History & Physical I have noted the following changes of clinical significance: no changes noted
[2023-09-14] MEDS: ceFAZolin 3000MG 3,000 MG/72.5 ML BAG IV SCH (11:21)
[2023-09-14] MEDS ORDERED: PHENYLEPHRINE 100MCG/ML 10ML SYR IV ONE (11:32)
[2023-09-14] MEDS ORDERED: ePHEDrine sulfate 50 MG/5 ML SYR ONE (11:32)
[2023-09-14] MEDS: ORTHO JOINT ANESTHETIC ONE (12:06)
[2023-09-14] MEDS: TRANEXAMIC ACID 1,000 MG **IV Intra-op IV SCH (12:21)
[2023-09-14] MEDS: ROPIV 0.5% 246mg, Ketorolac 30mg, EPINEPHrine 0.5mg in NSS INFIL SCH (12:37)
[2023-09-14] MEDS: VANCOMYCIN HCL 1000MG/20ML VIAL ONE (12:38)
--- NOTE | 2023-09-14 13:15 | Operative Report ---
PG Post Operative Report Pre & Post Diagnosis Operation Date: 09/14/23 10:40 Pre-Op Diagnosis: Left Knee Degenerative Joint Disease Post-Op Diagnosis: Left Knee Degenerative Joint Disease I identified the patient and participated in the time-out.: Yes Procedure Operation Date: 09/14/23 10:40 Actual Procedures p Left Total Knee Arthroplasty(Left) - Farzad Polanco MD Surgeon Farzad Polanco MD Rigging Slinger Juan Hensley PA-C Estimated Blood Loss 50 Findings Consistent with Post-Op Diagnosis Operative findings revealed a large 52-year-old gentleman. He had grade 4 full- thickness cartilage loss in the medial side of his knee. The rest of his knee looked pretty well-preserved. Not much eburnation but full-thickness cartilage loss. Moderate-sized joint effusion. Specimens Left knee sent for pathology. Anesthesia Type Spinal MAC Complications none Disposition Accompanied Patient To Recovery: No Indications Patient is a 52-year-old gentleman has had a several year history of bilateral knee pain discomfort described to gotten worse over time. He had his right knee replaced 2 years ago and did pretty well with this. Over the years he developed persistent progressive pain in his left knee. Is been through extensive conservative treatments became less successful over time. X-rays show advanced medial compartment arthritis. He elected proceed with total knee arthroplasty. Description of Procedure Operative implants consist of: 1 Biomet Vanguard size 70 left posterior stabilized femoral component. 2. Biomet size 75 tibial tray. 3. 10 mm posterior stabilized polyethylene insert. 4. 31 x 8 all poly patella. The patient was taken to the operating, identified, and placed on the operating table in the supine position. All contact areas were appropriately padded. IV antibiotics tried by the anesthesia team. A spinal anesthetic and adductor canal block had been provided in the holding area. A left thigh tent was then placed. Left lower extremity was then prepped and draped in usual sterile fashion. The left leg was elevated and exsanguinated with use of an Esmarch and a turn was placed at 300 mmHg. An anterior approach the left knee was then performed to longitudinal incision centered over the patella. Sharp dissection was carried through subcutaneous tissue down below the extensor mechanism. A medial parapatellar arthrotomy incision was made. Some subperiosteal dissection was carried out medially. The fat pad was resected from Neath patella tendon. The lateral patellofemoral ligament was released. Patella subluxated laterally knee was flexed. The osteophytes taken on distal femur. The ACL and PCL were then released from the distal femur and the tibia subluxated anteriorly. The external treatment LYMErix then placed on the anterior face of the tibia and adjusted 14 mm medially. Proximal tibial cut was made remove about 2 to 3 mm of bone from the medial side. There was not much in the way of bony wear. The tibia sized to a size 75. Attention drawn the femur. The distal femur was then with a sharp drill. Intramedullary canal was suction. A left 6 degree valgus cutting guide was placed. The distal femoral cutting block was pinned in place. Distal femoral cut was made to take an additional 3 mm of bone off distal femur. The femur was then sized to a size 70. The AP cutting block was pinned parallel to the epicondylar axis which was 5 degrees of external rotation. The anterior cut, anterior chamfer, posterior cut, posterior chamfer cuts were made. The box cutting guide was placed in the just slight lateral and the box cut was made. The knee was flexed. The remnants of the medial and lateral menisci were excised. The osteophyte taken off the posterior aspect the femur. A trial femoral component was placed for the tibial tray was pinned Sharri external rotation and the drill and stem punch were used to create the defect in proximal tibia for the tibial tray. The knee was then trialed and the 10 mm insert fit most appropriately. Attention drawn the patella. The patella was cleaned of all soft tissue. Patella thickness measured 25 mm in thickness was cut down to 15. Was sized to a size 31 patella. The lug holes were drilled for 31 patella. The lateral osteophyte was removed. Patella button was placed. Knee was taken through range of motion patella tracked ni dominique with no thumbs test. Attention drawn to placing the permanent components. All trial components were removed. Bone plug was placed in the distal femur limit blood loss. A double batch Pal[place]os G cement was mixed. I did add an additional gram of vancomycin due to his autoimmune disease. A Biomet SlideMailguard size 70 left Po stabilized femoral component, a size 75 tibial tray, a 10 mm post stabilized polyethylene insert, and a 31 x 8 all poly patella then cemented in place. The knee was brought out into full extension till cement hardened. Final cement check was then performed. The pericapsular tissues were injected with total of 100 cc of Ortho mix. The patient did receive 1 g tranexamic acid. The tourniquet was then let down for final tourniquet time 64 minutes. Hemostasis assured with electrocautery. Extensor Meclomen closed with combination 1 PDS suture and #1 Vicryl suture in a [id number] fashion. Extensor Meclomen checked found to be intact the subcutaneous tissue was then closed with 2 Dexon suture in a buried interrupted fashion skin was closed skin cintia. Leg was then cleaned and dried and a sterile dressing with Xeroform, 4 fours, sterile cast padding, Mamadou bandage were applied. Patient then transferred to the recovery room in stable condition. Patient tolerated procedure well and there were no complications. Juan Hensley, my physician medical claims assistant, was present for the entire procedure. His assistance was essential and required for appropriate patient positioning, prepping and draping, surgical exposure, performing the technical details of the operation, placement the implants, closure of the wound, and placement of the sterile bandage. I attest to the content of the Intraoperative Record and any orders documented therein. Any exceptions are noted below.
--- NOTE | 2023-09-14 13:39 | Anesthesiology Progress Note ---
Date of Service September 14, 2023 Anesthesia Post Procedure Vital Signs Vital Signs: Temp Pulse Pulse Resp BP Pulse Ox O2 Del Method 09/14/23 13:35 36.4 C L 72 16 115/70 95 Room Air 09/14/23 13:25 72 16 106/67 97 Oxymask 09/14/23 13:15 36.0 C L 74 18 108/64 96 Oxymask 09/14/23 10:07 76 16 98 Room Air 09/14/23 09:45 37.0 C 74 18 128/77 96 Room Air O2 Flow Rate 09/14/23 13:35 09/14/23 13:25 4 09/14/23 13:15 6 09/14/23 10:07 09/14/23 09:45 Pain Intensity Generalized: Pain Intensity: 5 Notes Mental Status: alert / awake / arousable Patient Amnestic to Procedure: Yes Nausea / Vomiting: adequately controlled Pain: adequately controlled Airway Patency, RR, SpO2: stable & adequate BP & HR: stable & adequate Hydration State: stable & adequate Neuraxial Anesthesia: was administered and sensory block is resolving Anesthetic Complications: no major complications apparent
--- NOTE | 2023-09-14 13:41 | XRay Report ---
XR knee LT 1 or 2V routine HISTORY: 52 years-old Male Surgical Post Op left knee arthroplasty COMPARISON: Knee radiographs 07/20/2023 TECHNIQUE: 2 views of the left knee FINDINGS: Total joint arthroplasty with patellar resurfacing. Anterior midline skin cintia with expected posto perative soft tissue swelling and deep tissue air. IMPRESSION: Total joint arthroplasty with expected postoperative changes. ACT 112: Negative or not required by law. The above report was generated using voice recognition software. It may contain grammatical, syntax o r spelling errors. Electronically signed by: Delbert Lindsey M.D. 09/14/2023 1:40 PM
[2023-09-14] MEDS ORDERED: HYDROmorphone INJ 0.5 MG/0.5 ML SYR IV PRN (14:14)
[2023-09-14] MEDS ORDERED: NALOXONE HCL 0.4 MG/1 ML VIAL/CARP IV PRN (14:14)
[2023-09-14] MEDS ORDERED: ALBUTEROL HFA 8 GM INHALER INH PRN (14:14)
[2023-09-14] MEDS ORDERED: MAGNESIUM HYDROXIDE SUSP 30 ML UDC PO PRN (14:14)
[2023-09-14] MEDS ORDERED: METOCLOPRAMIDE HCL INJ 5 MG/ML 2 ML VIAL IV PRN (14:14)
[2023-09-14] MEDS ORDERED: IXEKIZUMAB 80 MG/ML SQ SCH (14:14)
[2023-09-14] MEDS ORDERED: bisacodyL 10 MG SUPP PR PRN (14:14)
[2023-09-14] MEDS ORDERED: diphenhydrAMINE Capsule 25 MG CAP PO PRN (14:14)
[2023-09-14] MEDS ORDERED: ONDANSETRON INJ 2 MG/ML 2 ML VIAL IV PRN (14:14)
[2023-09-14] MEDS ORDERED: COLCHICINE 0.6 MG TAB PO PRN (14:14)
[2023-09-14] MEDS ORDERED: QUEtiapine FUMARATE 25 MG TABLET PO PRN (14:14)
[2023-09-14] MEDS ORDERED: ALUMINUM/MAGNESIUM SUSP 30 ML UDC PO PRN (14:14)
[2023-09-14] MEDS: ceFAZolin 2000MG 2,000 MG/15 ML SYR IV SCH ×2 (14:20→19:34)
[2023-09-14] MEDS: KETOROLAC 30 MG/ML VIAL IV SCH (14:59)
[2023-09-14] MEDS: SODIUM CHLORIDE 0.9% 1,000 ML IV SCH (14:59)
[2023-09-14] MEDS: ASCORBIC ACID 500 MG TAB PO SCH (17:07)
[2023-09-14] MEDS: Scopolamine CHECK PATCH PLACEMENT SCH (17:07)
[2023-09-14] MEDS: oxyCODONE HCL IR 5 MG TAB (IMMEDIATE RELEASE) PO PRN (19:33)
[2023-09-14] MEDS: TRANEXAMIC ACID / 0.7% NACL 1,000 MG/100 ML BAG IV SCH (19:37)
[2023-09-14] MEDS ORDERED: SENNA 8.6 MG TAB PO SCH (21:00)
[2023-09-14] MEDS: SENNA 8.6 MG TAB PO SCH (21:02)
[2023-09-14] MEDS: DOCUSATE SODIUM 100 MG CAP PO SCH (21:02)
[2023-09-14] MEDS: POTASSIUM CHLORIDE 10 MEQ TABCR PO SCH (21:03)
[2023-09-14] MEDS: ASPIRIN 81 MG ECTAB PO SCH (21:07)
[2023-09-14] MEDS: METOPROLOL SUCC 50MG EXT REL TAB PO SCH (21:08)
[2023-09-14] MEDS: QUEtiapine FUMARATE 25 MG TABLET PO SCH (22:28)
--- OUTSIDE RECORDS SUMMARY | 2023-09-15 01:51 | External Medical Summary | Summary of Care ---
Author Name Unknown Organization [facility] Address [address] [place] [address] Phone [phone] Care Team Providers Care Jingle Writer Name Role Phone Amandeep Gonzalez MD Primary Care Provider Reason for Visit * Reason Onset Date Comments Precert Approved 08/29/2023 Radha Encounter Details Date Type Department Care Team (Late st Contact Info) Description 08/29/2023 Telephone Nutrition & Weight Management, [place] [address] [phone] Niki Flores, [address], [place] [phone] Precert Approved ( Radha) Allergies No known active allergiesdocumented as of this encounter (statuses as of 09/06/2023) Medications Medication Sig Dispensed Refills Start Date End Date Status Sildenafil Citrate 50 MG Oral Tablet Take 2 Tabs by mouth daily as needed for Erectile Dysfunction. 10 Tab 12/02/2020 Active Colchicine 0.6 MG Oral TabletIndications:Go uty arthritis Take 1 Cap by mouth 2 times a day 180 Tablet 4 11/21/2021 Active Additional Information Patient taking differently: 0.6 mg Oral HS, (No instructions reported), Reported on 03/27/2023 Triamcinolone Acetonide 0.1 % External Cream (Aristocort) Apply topically to affected area 2 times a day. 80 g 2 05/05/2022 Active Metoprolol Succinate ER 100 MG Oral Tablet Extended Release 24 Hour (toPROL XL)Indications:HTN, goal below 140/90 Take 1 Tablet by mouth in the morning and 1 Tablet before bedtime. 180 Tablet 3 10/16/2022 Active Losartan Potassium 50 MG Oral Tablet (Cozaar)Indications: HTN, goal below 140/90 Take 1 Tablet by mouth in the morning. 90 Tablet 3 10/16/2022 Active Atorvastatin Calcium 40 MG Oral Tablet (Lipitor)Indications :Hyperlipidemia, unspecified hyperlipidemia type Take 1 tablet by mouth daily 90 Tablet 3 11/10/2022 Active Allopurinol 300 MG Oral Tablet (Zyloprim)Indication s:Gouty arthritis Take 1 Tablet by mouth in the morning. 90 Tablet 4 11/09/2022 Active Fenofibrate 48 MG Oral Tablet (Tricor)Indications: Elevated triglycerides with high cholesterol Take 1 Tablet by mouth in the morning. 30 Tablet 5 11/13/2022 Active Furosemide 80 MG Oral Tablet (Lasix) Take 1 Tablet by mouth in the morning. 90 Tablet 3 02/04/2023 Active QUEtiapine Fumarate 50 MG Oral Tablet (SEROquel) Take 1 Tablet by mouth at bedtime. 02/09/2023 Active Multivitamin Oral Tablet Take 1 Tablet by mouth daily. 02/12/2023 Active Potassium Chloride Namita ER 20 MEQ Oral Tablet Extended Release Take 1 Tablet by mouth in the morning and 1 Tablet before bedtime. 02/12/2023 Active Albuterol Sulfate HFA 108 (90 Base) MCG/ACT Inhalation Aerosol Solution Inhale 2 Puffs by mouth every 4 hours as needed for Cough, Shortness of Breath or Wheezing. 18 g 02/16/2023 Active Vitamin D3 50 MCG (2000 UT) Oral Tablet Take 1 Tablet by mouth in the morning. 03/26/2023 Active Breztri Aerosphere 160-9-4.8 MCG/ACT Inhalation Aerosol (Budeson-Glycopyrrol -Formoterol) Inhale 2 Puffs by mouth in the morning and 2 Puffs before bedtime. 10.7 g 11 04/30/2023 Active Roflumilast 500 MCG Oral Tablet (Daliresp) Take 1 Tablet by mouth in the morning. 30 Tablet 11 04/30/2023 Active Taltz 80 MG/ML Subcutaneous Solution Auto-injector (Ixekizumab)Indicati ons:PSA (psoriatic arthritis) (HCC) Inject 1 mL under the skin every 4 weeks. 1 mL 2 06/21/2023 Active Taltz 80 MG/ML Subcutaneous Solution Auto-injector (Ixekizumab)Indicati ons:PSA (psoriatic arthritis) (HCC) Inject 160 mg (2 pens) under the skin once, followed by 80 mg every 4 weeks 3 mL 06/21/2023 Active buPROPion HCl ER (XL) 300 MG Oral Tablet Extended Release 24 Hour (Wellbutrin XL) Take 1 Tablet by mouth in the morning. 30 Tablet 5 07/09/2023 Active Acamprosate Calcium 333 MG Oral Tablet Delayed Release (Campral) Take 2 Tablets by mouth in the morning and 2 Tablets at noon and 2 Tablets before bedtime. 180 Tablet 08/28/2023 Active Wegovy 0.25 MG/0.5ML Subcutaneous Solution Auto-injector (Semaglutide-Weight Management) Inject 0.25 mg under the skin once a week. 2 mL 1 08/29/2023 Active Hospital, Clinic, or Other Facility Administered Medication Ordered Dose Route Frequency Start Date End Date Status Albuterol Sulfate (Proventil) (2.5 MG/3ML) 0.083% inhalation solution 2.5 mgIndications:COPD (chronic obstructive pulmonary disease) with chronic bronchitis (HCC) 2.5 mg NEBULIZER PRN 04/30/2023 04/29/2024 Active Albuterol Sulfate (Proventil) (5 MG/ML) 0.5% *conc* inhalation solution 2.5 mgIndications:COPD (chronic obstructive pulmonary disease) with chronic bronchitis (HCC) 2.5 mg NEBULIZER PRN 04/30/2023 04/29/2024 Active documented as of this encounter (statuses as of 09/06/2023) Active Problems Problem Noted Date Diagnosed Date Alcohol use disorder, severe, dependence 024 COPD with chronic bronchitis 07/09/2023 Need for vaccination against Streptococcus pneumoniae using pneumococcal conjugate vaccine 13 07/09/2023 Encounter for long-term (current) use of medicat ions 02/28/2023 Body mass index (BMI) of 45.0 to 49.9 in adult 1 04/21/2022 Overview: Per Obesity protocol - Per Obesity protocol - Per Obesity protocol - - Major depressive disorder, recurrent episode, mo derate 07/28/2022 Alcohol abuse 10/24/2021 JOAN (obstructive sleep apnea) 12/29/2019 Chronic systolic heart failure 09/11/2019 Pulmonary hypertension 09/09/2019 PSA (psoriatic arthritis) 08/13/2019 Overview: On Humira Gouty arthritis 07/01/2019 Morbid obesity due to excess calories 10/12/2017 HTN, goal below 140/90 10/12/2017 Adrenal nodule 11/27/2016 Ulnar nerve entrapment at elbow 10/15/2015 Overview: BILATERAL Hyperuricemia 10/15/2015 Family history of diabetes mellitus 10/15/2015 Tobacco use disorder 05/14/2015 Psoriasis documented as of this encounter (statuses as of 09/06/2023) Resolved Problems Problem Noted Date Diagnosed Date Resolved Date Hematemesis 10/24/2021 10/25/2021 Acute upper GI bleed 10/24/2021 022 Rectal bleeding 10/24/2021 10/25/2021 Type 2 diabetes mellitus wit h diabetic neuropathy 06/15/2021 06/15/2021 Type 2 diabetes mellitus wit h hemoglobin A1c goal of less than 7.0% 03/07/2021 06/15/2021 Body mass index (BMI) of 40. 0 to 44.9 in adult 05/17/2020 02/22/2023 Overview: Per Obesity protocol - Per Obesity protocol - - Body mass index (BMI) of 45. 0 to 49.9 in adult 01/19/2020 05/20/2020 Overview: Per Obesity protocol - - BJ (acute kidney injury) 09/13/2019 Chronic diastolic CHF (conge stive heart failure) 09/13/2019 06/15/2021 Chest pain 08/14/2019 08/16/2019 Morbid obesity with BMI of 40.0-44.9, adult 11/20/2017 01/22/2020 Overview: Per Obesity protocol #1 - Hyperlipidemia 08/09/2016 07/01/2019 Bilateral carpal tunnel syndrome 10/15/2015 11/27/2016 S/P carpal tunnel release 10/15/2015 Overview: right September 29 S/P decompression of ulnar nerve at elbow 10/15/2015 09/09/2019 Overview: RIGHT SEPTEMBER 29 Obesity, Class II, BMI 35-39 .9, isolated (see actual BMI) 10/15/2015 11/24/2017 Overview: Per Obesity protocol #1 - Thrombocytopenia 07/12/2015 06/15/2021 Pain of left hand 05/14/2015 11/27/2016 Hand pain 05/14/2015 11/27/2016 Paresthesias in left hand 05/14/2015 documented as of this encounter (statuses as of 09/06/2023) Immunizations Name Administration Dates Next Due COVID-19 mRNA, LNP-s, No Pre serve, 2-Dose Series (Moderna) 01/18/2021,12/21/2020 COVID-19, mRNA, LNP-s, PF, B ooster, 100mcg/0.5mg (Moderna) 02/03/2022 Pneumococcal Conjugate Vacci ne, 20-valent ([id number]) 07/09/2023 Seasonal Influenza Virus Vac cine, Unspecified Formulation 02/03/2022 Seasonal Influenza, PF, 6 M & above, IM , (FluLaval or Fluzone) 02/16/2023 Seasonal Influenza, Quadriva lent, No Preserve, IM 12/21/2020,01/08/2020,02/03/2019,2017,01/09/2017 Seasonal Influenza, Split, I IV3, With Preserve, Inj 02/15/2015 TD - Tetanus/Diptheria (ADULT) 02/11/2014 TDAP (age 10 and older)(Boostrix) 02/03/2019,04/2013 documented as of this encounter Social History Tobacco Use Types Packs/Day Years Used Date Smoking Tobacco: Every Day Cigarettes 1 36 Smokeless Tobacco: Former Snuff Comments:1/2 PPD as of 2023 Alcohol Use Standard Drinks/Week Comments Not Currently 20 (1 standard drink = 0.6 oz pu re alcohol) last drink 06/09/2023 PHQ-2 Answer Date Recorded PHQ Adult Total Score 2 07/09/2023 Hunger Vital Sign Answer Date Recorded Within the past 12 months, y ou worried that your food would run out before you got the money to buy more. Never true 07/09/19 24 Within the past 12 months, t he food you bought just didn't last and you didn't have money to get more. Never true 07/09/2023 Sex and Gender Information Value Date Recorded Sex Assigned at Male 09/19/2018 4:35 PM EDT Gender Identity Male 09/19/2018 4:35 PM EDT Sexual Orientation Straight 09/19/2018 4: 35 PM EDT Job Start Date Occupation Industry Not on file Not on file Not on file documented as of this encounter Functional Status Functional Status Response Date of Assess ment Are you deaf or do you have serious difficulty h earing? No 10/24/2021 Are you blind or do you have serious difficulty seeing, even when wearing glasses? No 10/24/2021 Do you have serious difficul ty walking or climbing stairs? (5 years old or older) No 10/25/2021 Do you have difficulty dress ing or bathing? (5 years old or older) No 10/24/2021 Because of a physical, menta l, or emotional condition, do you have difficulty doing errands alone such as visiting a doctor s office or shopping? (15 years old or older) No 10/25/19 Cognitive Status Response Date of Assessm ent Because of a physical, menta l, or emotional condition, do you have serious difficulty concentrating, remembering, or making decisions? (5 years old or older) No 10/24/2021 documented as of this encounter Miscellaneous Notes * Telephone Encounter - Renee Li LPN - 09/06/2023 3:41 PM EDT New or re-auth: new authorization Approved/Denied: Approved Drug Name and Formulation: wegovy 0.25mg/0.5ml pen How Prescribed(directions/sig): inject 0.25mg weekly Day Supply: 2ml per 28 days Did you receive insurance information from outside the chart? No, received insurance information within the chart Valid auth start date: 07/06/23 Valid auth end date: 03/06/24 Rx Insurance Info: Carrie ROBLES Reference #: [id number] Rx Benefits Verified through/on date: epic 09/03 Referral (TE) received from: Prescribing Clinic [facility] [facility] 09/05/23,9:45 AM * Telephone Encounter - Renee Li LPN - 08/29/2023 2:13 PM EDT Nutrition & Weight Management Pre-Cert Request Medication/Disease State Information: Medication: wegovy Diagnosis (including ICD-10): Morbid (severe) obesity due to excess calories E66.01 Non-medicaid coverage- route to [id number] Treatments tried and failed: N/A JOAN G47.33 Office Information: Prescriber: Niki Flores documented in this encounter Plan of Treatment Upcoming Encounters Date Type Department Care Team (Late st Contact Info) Description 10/02/2023 9:00 AM EDT [facility] [address] [place] [address] Amberly Christy MD [address] [place] [phone] Stu L[facility] [address] [place] [address] 10/15/2023 4:20 PM EDT Office Visit [facility] [place] [phone] Amandeep Gonzalez MD [address] [place] [address] 12/25/2023 8:30 AM EDT Office Visit Rheumatology, [facility] [address] [facility] [place] [address] Sly Tomas PA-C [address] [place] [address] Scheduled Procedures Name Priority Associated Diagnoses Date/Ti me COLONOSCOPY FLEXIBLE PROXIMA L DIAGNOSTIC Recall History of colonic polyps Health Maintenance Due Date Last Done Comments Alpha-1 Antitrypsin 1988 Hepatitis B (1 of 3 - 19+ 3-dose series) 1989 Cologuard 11/23/2015 Fecal Occult Blood Test 11/23/2015 Sigmoidoscopy 11/23/2015 Zoster Vaccines (1 of 2) 2020 COVID-19 Vaccine ( season) 2022 02/03/2022, 01/18/2021, 12/21/2020 DISCUSS TOBACCO CESSATION (REFER TO SMARTSET #[id number]) 04/30/2024 04/30/2023, 07/05/2022, 12/20/2021 GFR 07/11/2024 07/12/2023, 03/09, 02/22/2023, Additional history exists O2 ASSESSMENT COMPLETED IN PAST YEAR FOR COPD 08/27/2024 08/28/2023 Albumin/Creatinine Ratio 07/11/2026 07/12/2023, 05/10 Diabetes Screening 07/11/2026 07/12/2023, 1 05/28/2022, 02/22/2023, Additional history exists Colonoscopy 10/03/2026 10/03/2021, 10/03/2021 Colorectal Cancer Screening 10/03/2026 Lipid Panel 11/23/2027 2022, 05/10, 11/19/2021, Additional history exists DTaP,Tdap,and Td Vaccines (4 - Td or Tdap) 02/03/2029 02/03/2019, 02/11/2014, 02/07/2014 RETIRED - COLONOSCOPY-EVERY 5 YRS AGES 18-100 Discontinued 10/03/2021, 10/03/2021 Lung Cancer Screening Completed 01/05/2022, 017 Influenza Vaccine (FLU shot) Completed 02/16/2023, 02/03/2022, 12/21/2020, Additional history exists Pneumococcal Vaccine: Pediatrics (0 to 5 Years) and At-Risk Patients (6 to 64 Years) Completed 07/09/2023 GARDASIL-HPV IMMUNIZATION SERIES Aged Out No longer eligible based on patient's age to complete this topic MENINGOCOCCAL (MENACTRA/MENVEO) Aged Out No longer eligible based on patient's age to complete this topic documented as of this encounter Medical Devices Not on filedocumented as of this encounter Advance Directives * Full Code (Latest Code Status on File) Date Activated Date Inactivated Comments 10/24/2021 8:08 AM 10/25/2021 4:39 PM This order r eflects the patients wishes and were consensually agreed upon. Question Answer Comments Discussion of Advance Directives occurred with: Patient * Full Code Date Activated Date Inactivated Comments 08/14/2019 6:37 PM 08/16/2019 8:26 PM This order ref lects the patients wishes and were consensually agreed upon. Question Answer Comments Discussion of Advance Directives occurred with: Patient Care Teams Jingle Writer Relationship Specialty Start Date End Date Amandeep Gonzalez MD [address] [place] [address] PCP - General Family Medicine 07/18/21 documented as of this encounter
--- OUTSIDE RECORDS SUMMARY | 2023-09-15 01:51 | External Medical Summary | Summary of Care ---
Author Name Unknown Organization [facility] Address [address] [place] [address] Phone [phone] Care Team Providers Care Information Systems Security Specialist Name Role Phone Amandeep Gonzalez MD Primary Care Provider Reason for Visit * Reason Comments eRx-Medication Refill Encounter Details Date Type Department Care Team (Late st Contact Info) Description 09/05/2023 Refill Rheumatology, [place] [address], [place] [phone] Brennen Prasad MD [address] [place] [address] Allergies No known active allergiesdocumented as of this encounter (statuses as of 09/07/2023) Medications Medication Sig Dispensed Refills Start Date End Date Status Sildenafil Citrate 50 MG Oral Tablet Take 2 Tabs by mouth daily as needed for Erectile Dysfunction. 10 Tab 1 Active Colchicine 0.6 MG Oral TabletIndications:G outy arthritis Take 1 Cap by mouth 2 times a day 180 Tablet 4 2 Active Additional Information Patient taking differently: 0.6 mg Oral HS, (No instructions reported), Reported on 03/27/2023 Triamcinolone Acetonide 0.1 % External Cream (Aristocort) Apply topically to affected area 2 times a day. 80 g 2 3 Active Metoprolol Succinate ER 100 MG Oral Tablet Extended Release 24 Hour (toPROL XL)Indications:HTN, goal below 140/90 Take 1 Tablet by mouth in the morning and 1 Tablet before bedtime. 180 Tablet 3 3 Active Losartan Potassium 50 MG Oral Tablet (Cozaar)Indications :HTN, goal below 140/90 Take 1 Tablet by mouth in the morning. 90 Tablet 3 3 Active Atorvastatin Calcium 40 MG Oral Tablet (Lipitor)Indication s:Hyperlipidemia, unspecified hyperlipidemia type Take 1 tablet by mouth daily 90 Tablet 3 3 Active Allopurinol 300 MG Oral Tablet (Zyloprim)Indicatio ns:Gouty arthritis Take 1 Tablet by mouth in the morning. 90 Tablet 4 3 Active Fenofibrate 48 MG Oral Tablet (Tricor)Indications :Elevated triglycerides with high cholesterol Take 1 Tablet by mouth in the morning. 30 Tablet 5 3 Active Furosemide 80 MG Oral Tablet (Lasix) Take 1 Tablet by mouth in the morning. 90 Tablet 3 3 Active QUEtiapine Fumarate 50 MG Oral Tablet (SEROquel) Take 1 Tablet by mouth at bedtime. 3 Active Multivitamin Oral Tablet Take 1 Tablet by mouth daily. 3 Active Potassium Chloride Namita ER 20 MEQ Oral Tablet Extended Release Take 1 Tablet by mouth in the morning and 1 Tablet before bedtime. 3 Active Albuterol Sulfate HFA 108 (90 Base) MCG/ACT Inhalation Aerosol Solution Inhale 2 Puffs by mouth every 4 hours as needed for Cough, Shortness of Breath or Wheezing. 18 g 3 Active Vitamin D3 50 MCG (2000 UT) Oral Tablet Take 1 Tablet by mouth in the morning. 3 Active Breztri Aerosphere 160-9-4.8 MCG/ACT Inhalation Aerosol (Budeson-Glycopyrro l-Formoterol) Inhale 2 Puffs by mouth in the morning and 2 Puffs before bedtime. 10.7 g 11 4 Active Roflumilast 500 MCG Oral Tablet (Daliresp) Take 1 Tablet by mouth in the morning. 30 Tablet 11 4 Active buPROPion HCl ER (XL) 300 MG Oral Tablet Extended Release 24 Hour (Wellbutrin XL) Take 1 Tablet by mouth in the morning. 30 Tablet 5 4 Active Acamprosate Calcium 333 MG Oral Tablet Delayed Release (Campral) Take 2 Tablets by mouth in the morning and 2 Tablets at noon and 2 Tablets before bedtime. 180 Tablet 4 Active Wegovy 0.25 MG/0.5ML Subcutaneous Solution Auto-injector (Semaglutide-Weight Management) Inject 0.25 mg under the skin once a week. 2 mL 1 4 Active Taltz 80 MG/ML Subcutaneous Solution Auto-injector (Ixekizumab) Give 1 injection (80mg) subcutaneously every 4 weeks. 1 mL 5 4 Active Taltz 80 MG/ML Subcutaneous Solution Auto-injector (Ixekizumab)Indicat ions:PSA (psoriatic arthritis) ([facility]) Inject 1 mL under the skin every 4 weeks. 1 mL 2 4 09/07/19 24 Discontinu ed(Medicat ion List Clean Up) Taltz 80 MG/ML Subcutaneous Solution Auto-injector (Ixekizumab)Indicat ions:PSA (psoriatic arthritis) ([facility]) Inject 160 mg (2 pens) under the skin once, followed by 80 mg every 4 weeks 3 mL 4 09/07/19 24 Discontinu ed(Medicat ion List Clean Up) Hospital, Clinic, or Other Facility Administered Medication [...] as of this encounter (statuses as of 09/07/2023) Active Problems Problem Noted Date Diagnosed Date [...] as of this encounter (statuses as of 09/07/2023) Resolved Problems Problem Noted Date Diagnosed Date [...] as of this encounter (statuses as of 09/07/2023) Immunizations Name Administration Dates Next Due COVID-19 mRNA, LNP-s, No Pre serve, 2-Dose Series (Moderna) 01/18/2021,12/21/2020 COVID-19, mRNA, LNP-s, PF, B ooster, 100mcg/0.5mg (Moderna) 02/03/2022 Pneumococcal Conjugate Vacci ne, 20-valent ([id number]) 07/09/2023 Seasonal Influenza Virus Vac cine, Unspecified [...] encounter Miscellaneous Notes * Telephone Encounter - Angela Walker [facility] - 09/07/2023 12:29 PM EDTSigned Prescriptions: Disp Refills Taltz 80 MG/ML Subcutaneous Solution Auto-*1 mL 5 Sig: Give 1 injection (80mg) subcutaneously every 4 weeks.Authorizing Provider: SLY SIERRA User: ANGELA WALKER * Telephone Encounter - Angela Walker RPh - 09/07/2023 12:29 PM EDT Rheumatology: Refill Request(s) Per review of the refill parameters, Medication was refilled Angela Walker RPh [facility] Clinical Pharmacist Rheumatology Department 09/07/2023,12:29 PM documented in this encounter Plan of Treatment Upcoming Encounters Date Type Department Care Team (Late st Contact Info) Description 10/02/2023 9:00 AM EDT Telemedicine Addiction Medicine[address] [place] [address] Amberly Christy MD [address] [place] [address] [facility] [address] [facility] [place] [address] 10/15/2023 4:20 PM EDT Office Visit [facility] [place] [phone] Amandeep Gonzalez MD [address] [place] [address] 12/25/2023 8:30 AM EDT Office Visit Rheumatology, [address] [place] [address] Sly Sierra PA-C [address] [place], [place] [address] Scheduled Procedures Name Priority Associated Diagnoses Date/Ti [...] Advance Directives occurred with: Patient Care Teams Information Systems Security Specialist Relationship Specialty Start Date End Date Amandeep Gonzalez MD [address] [place] [phone] PCP - General Family Medicine 07/18/21 documented as of this encounter
--- OUTSIDE RECORDS SUMMARY | 2023-09-15 01:51 | External Medical Summary | Summary of Care ---
Author Name Unknown Organization [facility] Address [address] [place] [address] Phone [phone] Care Team Providers Care Mobile Security Architect Name Role Phone Amandeep Gonzalez MD Primary Care Provider Reason for Visit * Reason Comments Follow Up * Evaluate & Treat - Unlimited Visits (Within 30 days (routine)) - Authorized Specialty Diagnoses / Procedures Referred By Venkat t Referred To Contact Addiction Medicine Diagnoses History of alcohol use aKtrina Luna CRNP [address] [place] [address] Referral ID Status Reason Start Date Expiration Date Visits Requested Visits Authorized [id number] Authorized Specialty Services Required 07/09/2023 07/08/2024 [id number] Encounter Details Date Type Department Care Team (Late st Contact Info) Description 08/28/2023 11:45 AM EDT [facility] [address] [place] [address] Amberly Christy MD [address] [place] [id number] [facility] [address] [place] [address] Alcohol use disorder, severe, in early remission (HCC)* Allergies No known active allergiesdocumented as of this encounter (statuses as of 08/28/2023) Medications Medication Sig Dispensed Refills Start Date End Date Status Sildenafil Citrate 50 MG Oral Tablet Take 2 Tabs by mouth daily as needed for Erectile Dysfunction. 10 Tab 12/02/2020 Active Colchicine 0.6 MG Oral TabletIndications:G outy [...] 11/10/2022 Active Allopurinol 300 MG Oral Tablet (Zyloprim)Indicatio ns:Gouty arthritis Take 1 Tablet by mouth in the morning. 90 Tablet 4 11/09/2022 Active Fenofibrate 48 MG Oral Tablet (Tricor)Indications [...] g 02/16/2023 Active Vitamin D3 50 MCG (1999 UT) Oral Tablet Take 1 Tablet by [...] Subcutaneous Solution Auto-injector (Ixekizumab)Indicat ions:PSA (psoriatic arthritis) ([facility]) Inject 1 mL under the skin every 4 weeks. 1 mL 2 06/21/2023 Active Taltz 80 MG/ML Subcutaneous Solution Auto-injector (Ixekizumab)Indicat ions:PSA (psoriatic arthritis) ([facility]) Inject 160 mg (2 pens) under the [...] Tablets before bedtime. 180 Tablet 08/28/2023 Active Acamprosate Calcium 333 MG Oral Tablet Delayed Release (Campral) Take 2 Tablets by mouth in the morning and 2 Tablets at noon and 2 Tablets before bedtime. 180 Tablet 07/26/2023 08/28/19 24 Discontinu ed(Refill) Hospital, Clinic, or Other Facility Administered Medication [...] as of this encounter (statuses as of 08/28/2023) Active Problems Problem Noted Date Diagnosed Date [...] as of this encounter (statuses as of 08/28/2023) Resolved Problems Problem Noted Date Diagnosed Date [...] as of this encounter (statuses as of 08/28/2023) Immunizations Name Administration Dates Next Due COVID-19 mRNA, LNP-s, No Pre serve, 2-Dose Series (Moderna) 01/18/2021,12/21/2020 COVID-19, mRNA, LNP-s, PF, B ooster, 100mcg/0.5mg (Moderna) 02/03/2022 Pneumococcal Conjugate Vacci ne, 20-valent ([id number]) 07/09/2023 Seasonal Influenza Virus Vac cine, Unspecified [...] Cigarettes 1 36 Smokeless Tobacco: Former Snuff Tobacco Cessation:Ready to Q uit: Not Asked; Counseling Given: Not Answered Comments:1/2 PPD as of 08/28/2023 Alcohol Use Standard Drinks/Week Comments Not Currently [...] on file documented as of this encounter Last Filed Vital Signs Vital Sign Reading Time Taken Comments Blood Pressure - - Pulse 59 08/28/2023 11:30 AM EDT Temperature 36.2 C (97.1 F) 08/28/2023 1 1:30 AM EDT Respiratory Rate 20 08/28/2023 11:3 0 AM EDT Oxygen Saturation 98% 08/28/2023 11: 30 AM EDT Inhaled Oxygen Concentration - - Weight 167.7 kg (369 lb 11.2 oz) 2023 11:30 AM EDT Height - - Body Mass Index 48.78 08/18/2023 9:23 AM EDT documented in this encounter Functional Status Functional Status Response [...] No 10/24/2021 documented as of this encounter Progress Notes * Daisy Cardenas LPN - 08/28/2023 2:08 PM EDT RETURN ADDICTION COORDINATOR PATIENT NOTE Is this an [facility] patient? No Interaction Type: Scheduled Interaction Location: On Site Client profile changes since last visit? No Social History Substance and Sexual Activity Drug Use No Comment: denies Social History Substance and Sexual Activity Alcohol Use Not Currently Alcohol/week: 20.0 standard drinks of alcohol Types: 16 12 oz of beer, 4 1.5 oz of liquor per week Comment: last drink 06/09/2023 [employer] Addiction Medicine (ASAM) Level (LOC recommendation): 1 - Outpatient Where was Case Management performed? [facility] Case Management Activity: General Activity Codes: Evaluation of Needs, Face to Face Monitoring, Care Coordination, and Urine or Blood Screen Referral Category: Referral or Followup on Substance Use Disorder Counseling Monitored Engagement Category: Monitored Engagement with Substance Use Disorder Treatment Transition of Care: Transition of Care for Substance Use Disorder Treatment, Transition of Care forPeer Support, and Transition of Care for Self-Help Meetings Patient appropriate for MAT? Yes Updated Level of Care Recommendation: No Patient attends Drug and Alcohol Outpatient counseling? Yes, patient attends individual Outpatient [facility] sessions once a week. Patient attends or utilizes the following support programs: None Medical Services that were discussed: Mental Health, Need Indicated Non-Medical Services that were discussed: Drug and Alcohol Counseling, Need Indicated Peer-Support Services that were discussed: Connection to Recovery Resources, Need Indicated Most Recent Patient Severity Rating: Yellow-Harm Reduction Previous Significant Episodes of Non-adherence: 0 instance. If the [facility], was patient referred to another level of care? N/A Encounter Notes: here for follow up Patient was discussed as a part of a multidisciplinary team huddle. Was the Prescription Drug Monitoring Program (PDMP) reviewed? Yes, by the provider Time spent completing this patient case management and documentation: 20 Minutes * Amberly Christy MD - 08/28/2023 11:53 AM EDT Outpatient Addiction Medicine Maintenance Visit Progress Note Patient location: CLINIC. I was not in a hospital or clinic location. After connecting through [employer], patient was verified with two unique identifiers. Patient (or authorized legal nutrition representative) was then informed that this was a Telemedicine visit and being conducted confidentially over secure lines. My office door was closed. No one else was in the room with me. Patient acknowledged consent and understanding of privacy and security of the Telemedicine visit, and gave permission to have atelemedicine presenter stay in the room in order to assist with the history and to conduct the examas needed. I informed the patient that I have reviewed their record in [employer] and presented the opportunity for them to ask any questions regarding the visit today. The patient agreed to participate. Chief Complaint: Alcohol Use Disorder Most Recent Medication Prescribed: acamprosate Current dose of medication: 666 TID Last dose of medication: this morning Cravings: no History of Present Illness: Harm reduction yellow Patient is seen in clinic for monthly visit. Denies alcohol use or cravings on Campral. States no drinking in 2 months. He finds acamprosate more helpful than naltrexone for controlling cravings. He is spending his day gardening when it has not raining. He is scheduled for total knee replacement onSeptember 13 so he will not back for 2 months. Last Toxicology negative Have you used any substances since your last visit? no Does patient receive prescriptions for abusable medications? No. Patients most recent drug screen shows: No abnormalities Telemedicine Access: Patient does not have sufficient technology Telemedicine Labs: Patient has access to telemedicine labs Past Medical History: No past medical history on file. No past surgical history on file. Medications Current medication list reviewed. Review of patient's allergies indicates: No Known Allergies Physical Exam: Filed Vitals: 08/28/23 1130 Pulse: 59 Resp: 20 Temp: 36.2 C (97.1 F) TempSrc: Tympanic SpO2: 98% Weight: (!) 167.7 kg (369 lb 11.2 oz) GENERAL: alert and no distress PSYCH: euthymic and affect full range, no expressed suicidality, no expressed homocidality, no auditory or visual hallucinations Most Recent Patient Severity Rating: HRY Patient Severity Rating: Yellow-Harm Reduction Previous Significant Episodes of Non-Adherence: 0 instance. Significant Episodes of Non-Adherence: Patient has Significant Episodes of Non-adherence to the established plan of care? 0 instance. Assessment/Plan: 1. Alcohol use disorder, severe, in early remission (HCC) No use no cravings. Continue Campral 666 mg three times daily - TOXICOLOGY, URINE SCREEN W/O CONFIRMATION - SPECIMEN VALIDITY TEST, URINE - DRUG TOX MONITORING ALCOHOL METAB, QN, U Follow Up: Return in 8 weeks. Patient was discussed as a part of a multidisciplinary team huddle. I have inquired about the patient's mental health in this evaluation. Patient has consented to participate in Collaborative Care Model for behavioral health conditions including the involvement of a psychiatric spa consultant in the treatment team. Patients with Medicare understand there may be cost sharing associated with participation, although certain supplemental insurances may cover this cost sharing. No I have attempted to reviewed the [place] Prescription Drug Monitoring Program (PDMP) for information on contraindicated medications as well as signs of medication abuse and diversion. Yes I spent a total of 20 minutes on the date of service in preparation, delivery, and documentation ofthe care provided to (patient), excluding any time spent on the performance of any procedure or separately billable services. The counseling pertained to the patients history of risky substance use and their compliance and progress with the treatment plan. 42 C.F.R. 2.32 Prohibition on Redisclosure. The Federal rules restrict any use of the information to criminally investigate or prosecuteany alcohol or drug abuse patient. documented in this encounter Nursing Notes * Daisy Cardenas LPN - 08/28/2023 11:30 AM EDT Here for follow up. documented in this encounter Plan of Treatment Upcoming Encounters Date Type Department Care Team (Late st Contact Info) Description 08/29/2023 11:20 AM EDT [facility] [address] [place] [address] Niki Flores, [address] [place] [address] 10/02/2023 9:00 AM EDT Telemedicine Addiction Medicine[address] [address] Amberly Christy MD [address] [place] [address] [facility] [address] [place] [address] 10/15/2023 4:20 PM EDT Office Visit [address] [place] [id number] Amandeep Gonzalez MD [address] [place] [address] [place] [address] 12/25/2023 8:30 AM EDT Office Visit Rheumatology, [address] [place] [address] Sly Tomas PA-C [address], [place] [address] Pending Results Name Type Priority Associated Diagnoses Date /Time TOXICOLOGY, URINESCREEN W/O CONFIRMATION Lab Routine Alcohol use disorder, severe, in early remission (HCC) 08/28/2023 11:27 AM EDT SPECIMEN VALIDITY TEST, URINE Lab Routine Alcohol use disorder, severe, in early remission (HCC) 08/28/2023 11:27 AM EDT DRUG TOX MONITORING ALCOHOL METAB, QN, U Lab Routine Alcohol use disorder, severe, in early remission (HCC) 08/28/2023 11:27 AM EDT Scheduled Procedures Name Priority Associated Diagnoses Date/Ti [...] 12/21/2020 DISCUSS TOBACCO CESSATION (REFER TO SMARTSET #[id number]) 04/30/2024 04/30/2023, 07/05/2022, 12/20/2021 GFR 07/11/2024 07/12/2023, [...] Not on filedocumented as of this encounter Visit Diagnoses Diagnosis Alcohol use disorder, severe, in early remission (HCC)- Primary documented in this encounter Advance Directives * Full Code [...] Advance Directives occurred with: Patient Care Teams Mobile Security Architect Relationship Specialty Start Date End Date Amandeep Gonzalez MD [address] [place] [address] PCP - General Family Medicine 07/18/21 documented as of this encounter
--- OUTSIDE RECORDS SUMMARY | 2023-09-15 01:51 | External Medical Summary | Summary of Care ---
Author Name Unknown Organization [facility] Address [address] [place] [address] Phone [phone] Care Team Providers Care Pin Drafting Machine Tender Name Role Phone Amandeep Gonzalez MD Primary Care Provider Reason for Visit * Reason Comments Weight Management New Consultation * Evaluate & Treat - Unlimited Visits (Within 10 days (routine)) - Pending Review Specialty Diagnoses / Procedures Referred By Contact Referred To Contact GI NUTRITION/IM / Gastroenterology Diagnoses Morbid obesity due to excess calories (HCC) Ann Esteves PA-C [address] [place] [id number] Referral ID Status Reason Start Date Expiration Date Visits Requested Visits Authorized [id number] Pending Review Specialty Services Required 07/24/[phone] Encounter Details Date Type Department Care Team (Late st Contact Info) Description 08/29/2023 11:20 AM EDT Telemedicine Nutrition & Weight Management, [facility] [address] [place], [place] [id number] Niki Flores, [address] [place] [address] Abnormal weight gain*; Obesity, morbid (more than 100 lbs over ideal weight or BMI > 40) (HCC); JOAN on CPAP; HTN, goal below 140/90; Mixed dyslipidemia Allergies No known active allergiesdocumented as of this encounter (statuses as of 09/03/2023) Medications Medication Sig Dispensed Refills Start Date [...] Subcutaneous Solution Auto-injector (Ixekizumab)Indicati ons:PSA (psoriatic arthritis) ([facility]) Inject 1 mL under the skin every 4 weeks. 1 mL 2 06/21/2023 Active Taltz 80 MG/ML Subcutaneous Solution Auto-injector (Ixekizumab)Indicati ons:PSA (psoriatic arthritis) ([facility]) Inject 160 mg (2 pens) under the [...] as of this encounter (statuses as of 09/03/2023) Active Problems Problem Noted Date Diagnosed Date [...] as of this encounter (statuses as of 09/03/2023) Resolved Problems Problem Noted Date Diagnosed Date [...] as of this encounter (statuses as of 09/03/2023) Immunizations Name Administration Dates Next Due COVID-19 mRNA, LNP-s, No Pre serve, 2-Dose Series (Moderna) 01/18/2021,12/21/2020 COVID-19, mRNA, LNP-s, PF, B ooster, 100mcg/0.5mg (Moderna) 02/03/2022 Pneumococcal Conjugate Vacci ne, 20-valent ([id number]) 07/09/2023 Seasonal Influenza Virus Vac cine, Unspecified [...] Cigarettes 1 36 Smokeless Tobacco: Former Snuff Comments:04/10 PPD as of 2023 Alcohol Use Standard [...] Taken Comments Blood Pressure - - Pulse - - Temperature - - Respiratory Rate - - Oxygen Saturation - - Inhaled Oxygen Concentration - - Weight 167.4 kg (369 lb) 08/29/2023 11:53 AM EDT Height - - Body Mass Index 48.68 08/18/2023 9:23 AM EDT documented in this [...] as of this encounter Progress Notes * Niki Floresnamfran, DO - 08/29/2023 11:45 AM EDT Patient location: HOME. I was not in a hospital or clinic location. After connecting through [employer], patient was verified with two unique identifiers. Patient (or authorized legal insurance claims representative) was then informed that this was a Telemedicine visit and being conducted confidentially over secure lines. Methods to assure confidentiality were taken. Patient acknowledged consent and understanding of privacy and security of the Telemedicine visit. The patient agreed to participate. COMPREHENSIVE WEIGHT MANAGEMENT CLINIC CONSULTATION Referring Physician: Ann Esteves PA-C Source of information: Patient Available records reviewed: Recent provider visits and Labs Reason for Referral: Weight Management. Bennie Leger is a 52 year old patient with a past medical history for what is listed below,who presents to the [facility] for further recommendations. HPI: The patient suffers from Morbid obesity Patient is interested in the following treatment options for obesity: medical management and possible medication use. [place] better at around 275 lbs Previous Weight Management Interventions: The patient has tried weight loss in the past without significant chcf success. Previous interventions: Self-directed and Registered dietitian . He denies any past pharmacotherapy for weight loss. Cut out sodas and limit pastas/potato/breads. This is what helped recent weight loss. Weight history: Highest Body Weight: Is 398 pounds in 2023. Wt Readings from Last 8 Encounters: 08/29/23 (!) 167.4 kg (369 lb) 08/28/23 (!) 167.7 kg (369 lb 11.2 oz) 08/20/23 (!) 162.8 kg (359 lb) 08/18/23 (!) 163.3 kg (360 lb) 08/12/23 (!) 163.6 kg (360 lb 9.6 oz) 07/26/23 (!) 165.9 kg (365 lb 11.2 oz) 07/24/23 (!) 165.7 kg (365 lb 4.8 oz) 07/12/23 (!) 165.5 kg (364 lb 12.8 oz) Current Diet: Describes typical diet history/24 hr recall Breakfast: none Snacks: Lunch: sandwich Snacks: snicker snack bars (few per day) Dinner: meat potato veggies (1 plate) Snacks: yogurt or fruit Drinks: mostly water Restaurant meals: hoagies or tub mender salad 1-2/wk Activity: Limited by knee issues Past Medical History: Diagnosis Date Arthritis Body mass index (BMI) of 40.0 to 44.9 in adult ([facility]) 05/17/2020 Per Obesity protocol - Per Obesity protocol - - Chronic systolic heart failure ([facility]) 09/11/2019 HTN, goal below 140/90 10/12/2017 PSA (psoriatic arthritis) ([facility]) 08/13/2019 On Humira Psoriasis Pulmonary hypertension ([facility]) 09/09/2019 Tendinitis Tobacco use disorder 05/14/2015 Past Surgical History: Procedure Laterality Date ANESTH, TOTAL KNEE REPLACEMENT Right 06/2021 CARPAL TUNNEL SURGERY COLONOSCOPY, DIAGNOSTIC (RECTUM) N/A 10/03/2021 poor prep/biopsies show benign polyp/recall 5 years/COLONOSCOPY FLEXIBLE PROXIMAL DIAGNOSTIC performed by Davis Angel MD at ENDOSCOPY [facility] CORONARY ANGIOGRAPHY W/RIGHT+LEFT CATH 09/02/2019 CORONARY ANGIOGRAPHY W/RIGHT+LEFT CATH performed by Kenny Knight DO at [facility] EGD, FLEXIBLE, DIAGNOSTIC N/A 10/24/2021 small amount of food in stomach/mild gastritis/ESOPHAGOGASTRODUODENOSCOPY (EGD), FLEXIBLE, TRANSORAL, DIAGNOSTIC performed by Greta Anaya MD at OR [facility] REMOVAL OF APPENDIX 1982 REVISION OF ULNAR NERVE AT ELBOW Review of patient's allergies indicates: No Known Allergies Current Outpatient Medications Medication Sig Dispense Refill Wegovy 0.25 MG/0.5ML Subcutaneous Solution Auto-injector (Semaglutide-Weight Management) Inject 0.25 mg under the skin once a week. 2 mL 1 Sildenafil Citrate 50 MG Oral Tablet Take 2 Tabs by mouth daily as needed for Erectile Dysfunction.10 Tab 0 Colchicine 0.6 MG Oral Tablet Take 1 Cap by mouth 2 times a day (Patient taking differently: Take 1Tablet by mouth at bedtime.) 180 Tablet 4 Triamcinolone Acetonide 0.1 % External Cream (Aristocort) Apply topically to affected area 2 times a day. 80 g 2 Metoprolol Succinate ER 100 MG Oral Tablet Extended Release 24 Hour (toPROL XL) Take 1 Tablet by mouth in the morning and 1 Tablet before bedtime. 180 Tablet 3 Losartan Potassium 50 MG Oral Tablet (Cozaar) Take 1 Tablet by mouth in the morning. 90 Tablet 3 Atorvastatin Calcium 40 MG Oral Tablet (Lipitor) Take 1 tablet by mouth daily 90 Tablet 3 Allopurinol 300 MG Oral Tablet (Zyloprim) Take 1 Tablet by mouth in the morning. 90 Tablet 4 Fenofibrate 48 MG Oral Tablet (Tricor) Take 1 Tablet by mouth in the morning. 30 Tablet 5 Furosemide 80 MG Oral Tablet (Lasix) Take 1 Tablet by mouth in the morning. 90 Tablet 3 QUEtiapine Fumarate 50 MG Oral Tablet (SEROquel) Take 1 Tablet by mouth at bedtime. Multivitamin Oral Tablet Take 1 Tablet by mouth daily. Potassium Chloride Namita ER 20 MEQ Oral Tablet Extended Release Take 1 Tablet by mouth in the morning and 1 Tablet before bedtime. Albuterol Sulfate HFA 108 (90 Base) MCG/ACT Inhalation Aerosol Solution Inhale 2 Puffs by mouth every 4 hours as needed for Cough, Shortness of Breath or Wheezing. 18 g 0 Vitamin D3 50 MCG (2000 UT) Oral Tablet Take 1 Tablet by mouth in the morning. Breztri Aerosphere 160-9-4.8 MCG/ACT Inhalation Aerosol (Leqadlk-Edzuaiovdkz-Tinjgirbhl) Inhale 2 Puffs by mouth in the morning and 2 Puffs before bedtime. 10.7 g 11 Roflumilast 500 MCG Oral Tablet (Daliresp) Take 1 Tablet by mouth in the morning. 30 Tablet 11 Taltz 80 MG/ML Subcutaneous Solution Auto-injector (Ixekizumab) Inject 1 mL under the skin every 4 weeks. 1 mL 2 Taltz 80 MG/ML Subcutaneous Solution Auto-injector (Ixekizumab) Inject 160 mg (2 pens) under the skin once, followed by 80 mg every 4 weeks 3 mL 0 buPROPion HCl ER (XL) 300 MG Oral Tablet Extended Release 24 Hour (Wellbutrin XL) Take 1 Tablet by mouth in the morning. 30 Tablet 5 Acamprosate Calcium 333 MG Oral Tablet Delayed Release (Campral) Take 2 Tablets by mouth in the morning and 2 Tablets at noon and 2 Tablets before bedtime. 180 Tablet 0 Current Facility-Administered Medications Medication Dose Route Frequency Provider Last Rate Last Admin Albuterol Sulfate (Proventil) (2.5 MG/3ML) 0.083% inhalation solution 2.5 mg 2.5 mg Nebulizer PRN Niraj Michael MD Albuterol Sulfate (Proventil) (5 MG/ML) 0.5% *conc* inhalation solution 2.5 mg 2.5 mg Nebulizer Niraj Tom MD Family History: Family History Problem Relation Name Age of Onset Other (blood pressure [Other]) Mother Diabetes Mother Other (Does not know father) Father Hypertension Brother Hypertension Brother Other (Gout) Brother Social History: Alcohol: None Tobacco Use: Yes, smokes 1/2 pack per day Drug Use: No Review of Systems: has CHF, asthma, COPD Has HTN/HL/RA On meds for these. Had R knee replacement. September 13 will have L knee replaced. Has JOAN and wears a cpap machine. Patient denies personal history of heart disease, MO, CVA, glaucoma, seizures, kidney stones, or pancreatitis. Patient denies personal or family history of multiple endocrine neoplasia syndrome type 2 or medullary thyroid carcinoma. Physical Examination: Wt (!) 167.4 kg (369 lb) | BMI 48.68 kg/m | BSA 2.94 m General: Well-developed, comfortable, NAD HEENT: Normocephalic/atraumatic. Sclera non-icteric, MMM Lungs: breathing comfortably; no conversational dyspnea Cardiovascular: appears well-perfused Abdomen: unable to examine Skin: no evidence of bleeding or bruising Psych: normal mood and affect Neuro: no gross motor deficits, speech normal pitch and speed, AAOx3 Assessment and Recommendation: Mr. Leger is a 52 year old patient with a past medical history listed above, who presents tot [facility] for further recommendations. Abnormal weight gain Body mass index is 48.68 kg/m. Morbid obesity . Discussed weight management options and would like to proceed with conservative and medication weight management. Might be open to surgical weight management for it technical specialist wt loss/maintenance but upcoming surgery a priority for now Barriers are consistency. Motivators are feeling better, avoiding/reducing comorbid conditions,. Patient goals were discussed in detail at visit. Goals Trial of glp1 agonist 120-140 grams protein daily 2200 calories OA requiring knee replacement: - scheduled this summer - priority to get weight down prior to this CHF, HTN, HL - cont with current meds - work on lifestyle modifications and weight loss JOAN; - c/w CPAP machine Time spent with patient 45 minutes. More than 50% of my time spent with patient providing counseling about the benefits of weight loss, about the patient's nutritional status, detailed explanations about calorie count, types of nutrients to choose, and composition of the meals. Reviewed and discussed weight, weight trends and pertinent labs and test results. Motivational interview provided in order to prepare the patient to achieve future goals. The patient agreed to try all the plan discussed and return in two months. Patient was instructed to message or call in the meantime with any furtherconcerns or questions. Niki Flores DO documented in this encounter Plan of Treatment Upcoming Encounters Date Type Department Care Team (Late st Contact Info) Description 10/02/2023 9:00 AM EDT [facility] [place] [address] Amberly Christy MD [address] [place] [address] John, Telemed [facility] [address] [place] [address] 10/15/2023 4:20 PM EDT Office Visit [facility] [place] [phone] Amandeep Gonzalez MD [place] [address] 12/25/2023 8:30 AM EDT Office Visit Rheumatology, [facility] [address] [facility] [place] [address] Sly Tomas PA-C [address] [employer] [place] [address] Scheduled Procedures Name Priority Associated Diagnoses Date/Ti [...] as of this encounter Visit Diagnoses Diagnosis Abnormal weight gain- Primary Obesity, morbid (more than 100 lbs over ideal weight or BMI > 40) (HCC) Morbid obesity JOAN on CPAP Obstructive sleep apnea (adult) (pediatric) HTN, goal below 140/90 Unspecified essential hypertension Mixed dyslipidemia Mixed hyperlipidemia documented in this encounter Advance Directives * [...] Advance Directives occurred with: Patient Care Teams Pin Drafting Machine Tender Relationship Specialty Start Date End Date Amandeep Gonzalez MD [address] [place] [address] PCP - General Family Medicine 07/18/21 documented as of this encounter"
--- OUTSIDE RECORDS SUMMARY | 2023-09-15 01:51 | External Medical Summary | Summary of Care ---
Author Name Unknown Organization [facility] Address [address] [place] [address] Phone [phone] Care Team Providers Care Stone Grader Name Role Phone Amandeep Gonzalez MD Primary Care Provider Reason for Visit * Reason Comments Follow Up * Evaluate & Treat - Unlimited Visits (Within 30 days (routine)) - Authorized Specialty Diagnoses / Procedures Referred By Venkat t Referred To Contact Addiction Medicine Diagnoses History of alcohol use Katrina Luna CRNP [address] [place] [address] Referral ID Status Reason Start Date Expiration Date Visits Requested Visits Authorized [id number] Authorized Specialty Services Required 07/09/2023 07/08/[phone] Encounter Details Date Type Department Care Team (Late st Contact Info) Description 08/28/2023 11:45 AM EDT [facility] [address] [place] [address] Amberly Christy MD [address] [place] [address] [facility] [address] [place] [address] Alcohol use disorder, severe, in early remission [...] Subcutaneous Solution Auto-injector (Ixekizumab)Indicat ions:PSA (psoriatic arthritis) ([facility]) Inject 1 mL under the skin every 4 weeks. 1 mL 2 06/21/2023 Active Taltz 80 MG/ML Subcutaneous Solution Auto-injector (Ixekizumab)Indicat ions:PSA (psoriatic arthritis) ([facility]) Inject 160 mg (2 pens) under the [...] ([facility]) 02/03/2022 Pneumococcal Conjugate Vacci ne, 20-valent ([id number]) 07/09/2023 Seasonal Influenza Virus Vac cine, Unspecified [...] as of this encounter Progress Notes * Amberly Christy MD - 08/28/2023 11:53 AM EDT Outpatient Addiction Medicine Maintenance Visit Progress Note Patient location: CLINIC. I was not in a hospital or clinic location. After connecting through [employer], patient was verified with two unique identifiers. Patient (or authorized legal wine sales representative) was then informed that this was [...] that I have reviewed their record in [employer] and presented the opportunity for them to [...] conditions including the involvement of a psychiatric web development consultant in the treatment team. Patients with Medicare understand there may be cost sharing associated with participation, although certain supplemental insurances may cover this cost sharing. No I have attempted to reviewed the [place] Prescription Drug Monitoring Program (PDMP) for information [...] AM EDT Telemedicine Nutrition & Weight Management, [place] [address] [place] [address] Niki Flores, [address] [place] [address] 10/02/2023 9:00 AM EDT [facility] [address] [place] [address] Amberly Christy MD [address] [place] [address] [facility] [address] [place] [address] 10/15/2023 4:20 PM EDT [address] [phone] Amandeep Gonzalez MD [address] [facility] [address] 12/25/2023 8:30 AM EDT Office Visit [facility]umat[facility], [facility] [address] [facility] [address] Sly Tomas PA-C [facility] [employer] [address] Scheduled Procedures Name Priority Associated Diagnoses Date/Ti me COLONOSCOPY FLEXIBLE PROXIMA L DIAGNOSTIC Recall History of colonic polyps Health Maintenance Due Date Last Done Comments Alpha-1 Antitrypsin 1988 Hepatitis B (1 of 3 - 19+ 3-dose series) 1989 Cologuard 11/23/2015 Fecal Occult Blood Test 11/23/2015 Sigmoidoscopy 11/23/2015 Zoster Vaccines (1 of 2) 2020 COVID-19 Vaccine ( - 2022- season) 2022 02/03/2022, 01/18/2021, 12/21/2020 DISCUSS TOBACCO [...] Advance Directives occurred with: Patient Care Teams Stone Grader Relationship Specialty Start Date End Date Amandeep Gonzalez MD [address] [place] [address] PCP - General Family Medicine 07/18/21 documented as of this encounter
--- OUTSIDE RECORDS SUMMARY | 2023-09-15 01:52 | External Medical Summary ---
Author Name Unknown Address Unknown Organization K01:[facility] [place] [address] [address] [facility] [address] Laboratory Report Ordering Provider Test Date Status DARIUSZ ALCAZAR 08/28/2023 11:27:29 Final Cutoff Concentrations:
Drug Level
Amphetamines 500 ng/mL
Benzodiazepines 100 ng/mL
Cannabinoids 50 ng/mL
Cocaine Metabolite 150 ng/mL
Fentanyl 1 ng/mL
Hydrocodone / Hydromorphone 300 ng/mL
Methadone Metabolite 100 ng/mL
Morphine / Codeine 300 ng/mL
Oxycodone / Oxymorphone 100 ng/mL

Screening results are presumptive and can only be used for medical purposes. Confirmatory testing is available upon request. Observation Date Value Abnormality Reference (Units ) Status Amphetamines, Urine screen 08/28/2023 11:27:29 Negative Negative Final Benzodiazepines, Urine screen 08/28/2023 11:27:29 Negative Negative Final Cannabinoids, Urine screen 08/28/2023 11:27:29 Negative Negative Final Cocaine Metabolite, Urine screen 08/28/2023 11:27:29 Negative Negative Final fentaNYL [Presence] in Urine by Screen method 08/28/2023 11:27:29 Negative Negative Final HYDROcodone [Presence] in Urine by Screen method 08/28/2023 11:27:29 Negative Negative Final 5-Hzafgfookv-4,5-Dimeth yl-3,3-Diphenylpyrrolid ine (EDDP) [Presence] in Urine 08/28/2023 11:27:29 Negative Negative Final Opiates, Urine screen 08/28/2023 11:27:29 Negative Negative Final oxyCODONE [Presence] in Urine by Screen method 08/28/2023 11:27:29 Negative Negative Final Performing Location LABORATORY [facility] - [address] [facility] [address]
--- OUTSIDE RECORDS SUMMARY | 2023-09-15 01:52 | External Medical Summary ---
Author Name Unknown Address Unknown Organization : Laboratory Report Ordering Provider Test Date Status DARIUSZ ALCAZAR 08/28/2023 11:27:29 Final Observation Date Value Abnormality Reference (Units ) Status Ethyl glucuronide [Mass/volume] in Urine 08/28/2023 11:27:29 NEGATIVE <500 (ng/mL) Final Ethyl sulfate [Mass/volume] in Urine 08/28/2023 11:27:29 NEGATIVE <100 (ng/mL) Final This drug testing is for med ical treatment only.
Analysis was performed as non-forensic testing and
these results should be used only by healthcare
providers to render diagnosis or treatment, or to
monitor progress of medical conditions.
For assistance with interpreting these drug results,
please contact a [facility]
Specialist: [phone] ( ), M-F,
8am-6pm EST.
For additional information, please refer to
http://education.[employer]faq/NFM994
(This link is being provided for informational/
educational purposes only.)
This test was developed and its analytical performance
characteristics have been determined by [facility] [place], [place]. It has
not been cleared or approved by the U.S. Food and Drug
Administration. This assay has been validated pursuant
to the CLIA regulations and is used for clinical
purposes.

Test Performed at:
[facility]
[address] [address] [facility]
[place], [place]
Pavan Friedman M.D., Ph.D.,Director of Laboratories Performing Location
--- OUTSIDE RECORDS SUMMARY | 2023-09-15 01:52 | External Medical Summary ---
Author Name Unknown Address Unknown Organization K01:LABORATORY [facility] - [address] [place] [address] Laboratory Report Ordering Provider Test Date Status DARIUSZ ALCAZAR 08/28/2023 11:27:29 Final Observation Date Value Abnormality Reference (Units ) Status FORENSIC VALID INTERPRETATION 08/28/2023 11:27:29 Normal Final Creatinine, Urine 08/28/2023 11:27:29 202 (mg/dL) Final Performing Location LABORATORY C - [address] [place] [address]
[2023-09-15 07:06] LABS: Hematocrit (blood only) 32.8 % (42.0-52.0); Hemoglobin 11.4 g/dl (14.0-18.0); Mean Corpuscular Hemoglobin 31.2 pg (25.0-34.0); Mean Corpuscular Hgb Conc 34.8 g/dL (32.0-36.0); Mean Corpuscular Volume 89.9 fL (80.0-100.0); Mean Platelet Volume 9.6 fL (9.4-12.4); Platelet Count 160 K/uL (130-400); RDW Coefficient of Variation 12.6 % (11.5-14.5); RDW Standard Deviation 41.5 fL (36.4-46.3); Red Blood Count 3.65 M/uL (4.70-6.10); White Blood Count 13.24 K/ul (4.8-10.8)
[2023-09-15 07:07] LABS: BUN Creatinine Ratio 17.8 (10-20); Calcium 8.8 mg/dl (8.6-10.3); Creatinine Clr Calc Pharmacy 134.9 ml/min; Est GFR (African American) 98.7 ml/min; Est GFR (Non-African American) 85.1 ml/min; Potassium 4.8 mmol/L (3.5-5.1)
[2023-09-15] MEDS: dexAMETHasone 10 MG in SYRINGE 0 ML IV SCH (07:48)
--- NOTE | 2023-09-15 07:48 | Surgery Progress Note ---
Date of Service September 15, 2023 Assessment & Plan (1) Status post left knee replacement: Plan: 52-year-old morbidly obese gentleman postop day 1 from a left knee replacement doing reasonably well. Pain is controlled. He is neurologically intact. Plan: 1. DVT prophylaxis including thigh-high teds, SCDs, aspirin twice a day. 2. PT/OT. Weight-bear as tolerated. Left total knee protocol. 3. Pain control doing okay with current pain regimen. 4. Disposition. Plan is to discharge to home. He is going to go to local therapy. Admission and Anticipated Discharge Date Admission Date: September 14, 2023 Subjective 52-year-old gentleman postop day 1 from left knee replacement. He is doing pretty well. Some pain but manageable. No chest pain or shortness of breath. Not feeling dizzy or lightheaded. He is hoping to go home today. Physical Exam Physical Exam: Physical examination was a large middle-age male. He is lying in bed looks pretty comfortable this morning. Examination of the left leg reveals dressing be clean dry and intact. He can dorsiflex and plantarflex his foot appropriately. He is neurologically intact. Respiratory: normal respiratory effort, lungs clear to auscultation Cardiovascular: RRR, no murmur, no edema Gastrointestinal (Abdomen): normal bowel sounds, soft, nontender, no hepatosplenomegaly Results & Data Vital Signs (Past 12 Hours) Vital Signs Temp Pulse Resp BP Pulse Ox O2 Del Method 09/15/23 07:36 36.7 C 73 18 135/68 96 Room Air 09/15/23 02:42 36.5 C 62 14 113/76 95 Room Air 09/14/23 23:29 36.5 C 80 18 132/86 96 Room Air Laboratory Results Hemoglobin is 11.4. Hematocrit 32.8. Electrolytes are stable. PG Care Time/CCT Total # of Minutes Spent Total Time Spent with Patient: Total time spent is greater than 50% in coordination of care (as documented) at patient's floor/unit and/or counseling patient: Coding Level of Care Code 17304 Post Operative Follow-Up Diagnoses Status post left knee replacement Z96.652
[2023-09-15] MEDS: ROFLUMILAST 500 MCG TAB PO SCH (07:49)
[2023-09-15] MEDS: ATORVASTATIN 10 MG TAB PO SCH (07:49)
[2023-09-15] MEDS: allopurinoL 300 MG TAB PO SCH (07:49)
[2023-09-15] MEDS: buPROPion XL 300 MG TABCR PO SCH (07:49)
[2023-09-15] MEDS: FENOFIBRATE NANOCRYSTALLIZED 48 MG TABLET PO SCH (07:49)
[2023-09-15] MEDS: TAMSULOSIN HCL 0.4 MG CAP PO SCH (07:49)
[2023-09-15] MEDS: MULTIVITAMIN TAB PO SCH (07:51)
[2023-09-15] MEDS: FUROSEMIDE 40 MG TAB PO SCH (07:52)
[2023-09-15] MEDS: LOSARTAN POTASSIUM 50 MG TAB PO SCH (07:52)
[2023-09-15] MEDS: FLUTICASONE FUROATE 200MCG 14 PUFFS/INHALER INH SCH (07:55)
[2023-09-15] MEDS: UMECLIDINIUM/VILANTEROL 62.5/25MCG 7 PUFFS/INHALER INH SCH (07:55)
[2023-09-15] MEDS: NICOTINE 14 MG/24 HR PATCH TD SCH (07:57)
--- NOTE | 2023-09-17 13:03 | Discharge Summary ---
Date of Service September 17, 2023 Discharge Data Procedures Performed Operation Date: 09/14/23 10:40 Actual Procedures p Left Total Knee Arthroplasty(Left) - Farzad Polanco MD Hospital Course (1) Status post left knee replacement: This is a 52 year old patient admitted on 09/14/23 and underwent total knee arthroplasty. He tolerated the procedure well and there were no complications. Transferred to the PACU post op and later to the orthopedic floor for further care. He was given ancef for antibiotic prophylaxis. He was also given EDGAR stockings, SCDs, and aspirin for DVT prophylaxis. Hemoglobin, hematocrit, and vital signs were monitored during his hospital stay and remained stable. Did not require any blood transfusions. There were no complications during his hospital stay. By post op day #1 the patient was tolerating a regular diet, pain was reasonably controlled with oral pain medicine, and he was participating in physical therapy. On post op day #1 the patient was discharged home. He was given printed discharge instructions including prescriptions for extra strength tylenol, aspirin, ketorolac, cefadroxil, zofran, senokot, oxycodone, and flomax. Continue physical therapy, weight bearing as tolerated. Continue EDGAR stockings. Follow up approximately 2 weeks post op or sooner if there are problems or concerns. Coding Level of Care Code None Diagnoses Status post left knee replacement Z96.652
== END 2023-09-15 10:53 | disposition home or self-care (01) ==
LOC: ASU 08:59 → 3E 08:59